=== PATIENT | male | born 1945 | race Caucasian/White ===

== ENCOUNTER 2017-02-27 12:11 | Inpatient (IN) | payer MEDICARE ==
[~2017-02-27] VITALS: Ht 165.1 cm; Wt 47.5 kg
[~2017-02-27 12:11] MED LIST: ASPI81TA3 PO; CEPH500C PO; HYDR-4003 PO; HYDR12.5 PO; LIDOCAINE PATCH; OMEP20CA11 PO; POLY17PO6 PO; PRAV20TA2 PO; SULF1TAB7 PO; TIOT18CA3 IH
[2017-02-27 12:31] VITALS: BP 136/86; PULSE 58; RESP 14; O2SAT 98
--- NOTE | 2017-02-27 14:47 | ED.REPORT ---
HPI-Abd Pain M 40 and Over Date of Service Feb 27, 2017 ED Provider: Dr. Carpenter The pt is a 71 y/o male with a hx of COPD, HTN, hyperlipidemia, and recent hospitalization for pneumonia who presents to the ED complaining of "7/10" abdominal pain for the last 5 days. He reports relief after a BM. Associated sx include cough, chills, constipation for a few days, followed by mild diarrhea with hematochezia more recently. He denies recent travel, headache, nausea, vomiting, vision change, lightheadedness, and rash. The pt had a colonoscopy 3 years ago, which resulted normal. Nursing Notes Stated Complaint: ABD PAIN Chief Complaint: Male Abdominal Pain Nursing Notes Reviewed: Yes Allergies: Coded Allergies: No Known Allergies (Verified Allergy, Unknown, 02/27/17) Scheduled Aspirin Chew (Aspirin Chew) 81 Mg Chew 81 MG PO DAILY Polyethylene Glycol 3350 (Miralax) 17 Gm Powd.pack 17 GM PO DAILY Pravastatin (Pravastatin) 20 Mg Tablet 20 MG PO DAILY Tiotropium [place] (Spiriva) 18 Mcg Cap.w.dev 18 MCG IH DAILY Scheduled PRN Hydrocodone-Acetaminophen 5-325 mg (Hydrocodone-Acetaminophen 5-325 mg) 1 Each Tablet 1-2 EACH PO Q6 PRN PRN For Pain General Time Seen by MD: 14:47 Chief Complaint Abdominal pain Hx Obtained From: Patient Arrived By: Walk-in Sudden in Onset?: Yes Onset Occurred: 5 days ago Symptom Duration: Since onset Location: : Diffuse Quality: Painful Radiation: : Does not radiate Severity: Current: Moderate Severity: Maximum: Moderate Recent Healthcare: No recent doctor visit Past Medical History Past Medical History Retinal artery Hx of kidney stones Reports: Asthma, COPD, Hyperlipidemia, Hypertension Past Surgical History Cardiac cath hernia repair Back surgery Smoking History Former Smoker 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 Skin: Denies Rash Neurologic: Denies: Headache, Lightheaded, Vision change Physical Exam Initial Vital Signs Vital Signs (First) Date Time Temp Pulse Resp B/P Pulse Ox O2 Delivery O2 Flow Rate FiO2 02/27/17 12:31 36.8 58 14 136/86 98 Room Air Initial VS: Reviewed Head / Eyes: Atraumatic, Normocephalic Neck: Supple, Non-tender, Full range of motion Extremities: Vascular intact, Neuro intact, No swelling, No tenderness Skin: Warm, Dry, No cyanosis Neurologic: Alert, Oriented, Nonfocal General/Constitutional: Awake, Alert, Cooperative Distress / Hydration: Positive: Distress mild Respiratory / Chest: Atraumatic, Breath sounds NL, Breath sounds = bilat, No respiratory distress, No rales, No rhonchi, No wheezing Cardiovascular: Heart rate NL, Regular rhythm, Heart sounds NL, No gallop, No murmurs, No rubs Abdomen: Atraumatic, Soft, Non-tender, No guarding, No rebound Back: Atraumatic, Full range of motion, Painless range of motion Rectum / Perineum: Atraumatic Guaiac negative. (Exam performed by medical student) Interpretation & Diagnostics Lab Results Interpretation Result Diagram: 02/27/17 1432 02/27/17 1432 Test 02/27/17 14:32 02/27/17 17:21 White Blood Count 11.2th/mm3 (3.8-10.1) Red Blood Count 3.86mil/mm3 (4.40-5.80) Hemoglobin 13.2g/dL (13.8-17.2) Hematocrit 40.1% (41.0-50.0) Mean Corpuscular Volume 103.9fL (81-100) Mean Corpuscular Hemoglobin 34.2pg (27.0-35.0) Mean Corpuscular Hemoglobin Concent 32.9% (32.0-37.0) Red Cell Distribution Width 12.8% (12.3-15.4) Platelet Count 230bil/L (150-400) Neutrophils (%) (Auto) 79.3% (40-74) Lymphocytes (%) (Auto) 11.8% (14-46) Monocytes (%) (Auto) 7.9% (4-12) Eosinophils (%) (Auto) 0.3% (0-5) Basophils (%) (Auto) 0.4% (0-3) Sodium Level 139mEq/L (134-144) Potassium Level 4.5mEq/L (3.5-5.2) Chloride Level 102mEq/L (97-108) Carbon Dioxide Level 21mmol/L (18-29) Blood Urea Nitrogen 26mg/dL (8-27) Creatinine 1.33mg/dL (0.76-1.27) Estimat Glomerular Filtration Rate 56mL/min (>59) Glucose Level 95mg/dL (60-99) Calcium Level 9.3mg/dL (8.5-10.1) Magnesium Level 2.2mg/dL (1.6-2.6) Total Bilirubin 0.5mg/dL (0.0-1.2) Aspartate Amino Transf (AST/SGOT) 15U/L (0-50) Alanine Aminotransferase (ALT/SGPT) 14U/L (0-44) Alkaline Phosphatase 67U/L (25-160) Total Protein 7.2g/dL (6.4-8.4) Albumin 3.9g/dL (3.4-5.0) Lipase 11U/L (13-60) Hold Little Top Tube Received (Received) Hold Urine Received (Received) CT Abd / Pelvis Interpretation IMPRESSION: 1. No acute intra-abdominal findings. The appendix was not visualized; however there are no ancillary findings to suggest acute appendicitis. 2. Diverticulosis. No acute diverticulitis. Diverticular bleeding in the setting of hematochezia cannot be excluded. Colonoscopy is recommended. 3. Intrahepatic biliary ductal dilatation unchanged from prior studies. Dictated by: Abbey Villela M.D. on 02/27/2017 at 17:59 Approved by: Abbey Villela M.D. on 02/27/2017 at 18:14 Study type: Abdominal CT IV contrast Interpretation / Wet Read by: Interpret - Radiologist Re-Eval/Medical Decision Med Decision/Clinical Course Concern for diverticular GI bleeding, H&H is stable at this time. GI is consulted, agrees with plan for admission, trending hemoglobin and hematocrit and will plan for colonoscopy in the morning. Source of Hx: Old records Time of Eval: 18:22 Re-Evaluation/Progress Note: Rechecked pt. Discussed imaging results and plan to admit. Pt understands and agrees with the plan. All questions addressed Time of Eval: 18:46 Re-Evaluation/Progress Note: Rechecked pt. Discussed the plan to do a colonoscopy tomorrow. The pt understands and agrees with the plan. All questions answered. Consultation #1: Referral / Consult Name: Eleazar Fortune MD Call Returned at: 18:41 Legal Billing Coordinator: Will see patient, Agrees with eval, Agrees with plan Note: Recommends following Hgb, Hct, starting bowel prep, 2L tonight and 2L in the morning from 6 AM to 8 AM. He will do a colonoscopy tomorrow morning so recommends NPO after 8am. Available for consult overnight if the patient becomes unstable Consultation #2: Referral / Consult Name: Sindhu Kennedy MD Consulted With: Hospitalist Call Returned at: 18:44 Legal Billing Coordinator: Will see patient, Agrees with eval, Agrees with plan, Accepts admit Note: Dr. Kennedy is okay with transition orders. Counseled Regarding: Diagnosis, Lab results, Need for admission Discharge & Departure Primary Impression: Diverticulosis Diverticulosis site: unspecified location Diverticulosis bleeding: diverticulosis with bleeding Qualified Code: K57.91 - Diverticulosis of intestine, part unspecified, without perforation or abscess with bleeding Disposition: ADMITTED TO HOSPITAL Vital Signs - All Vital Signs Date Time Temp Pulse Resp B/P Pulse Ox O2 Delivery O2 Flow Rate FiO2 02/27/17 16:31 36.9 50 14 163/76 97 Room Air 02/27/17 12:31 36.8 58 14 136/86 98 Room Air Referrals: César Monet MD (PCP) Scribe Attestation Portions of this note were transcribed by Guanakito Castillo. I,, personally performed the history,physical exam and medical decision-making;I reviewed and confirmed the accuracy of the information in the transcribed note. Signed by Sharon Lopez. 02/27/17 copies to: César Monet MD, Timothy S DO Feb 27, 2017 14:47 Guanakito Castillo Feb 27, 2017 16:08
[2017-02-27 14:50] LABS: BASOPHILS % (AUTO) 0.4 % (0-3); EOSINOPHILS % (AUTO) 0.3 % (0-5); MONOCYTES % (AUTO) 7.9 % (4-12); Mean Corpuscular Hemoglobin 34.2 pg (27.0-35.0); Mean Corpuscular Volume 103.9 fL (81-100); NEUTROPHILS % (AUTO) 79.3 % (40-74); Platelet Count 230 bil/L (150-400)
[2017-02-27 15:13] LABS: Magnesium 2.2 mg/dL (1.6-2.6)
[2017-02-27] MEDS ORDERED: Iohexol 300 mg/mL 30 mL Inj PO ONE (15:40)
[2017-02-27 16:31] VITALS: BP 163/76; PULSE 50; RESP 14; O2SAT 97
--- NOTE | 2017-02-27 18:16 | DRSVH ---
PROCEDURE: CT ABDOMEN AND PELVIS WITH CONTRAST ([id number]) INDICATIONS: abd pain, hematochezia, cramping TECHNIQUE: After the administration of oral and intravenous contrast, 5 mm thick sections acquired from the diap hragms to the symphysis. 5 mm thick coronal and sagittal reformats were performed. For radiation do se reduction, the following was used: automated exposure control, adjustment of mA and/or kV accordi ng to patient size. COMPARISON: [facility], CT, CT CHEST WO CON, 04/18/2016, 10:19. [facility], CT, CHEST/ABD/PELVIS/ WO CON (PN), 12/03/2014, 13:07. FINDINGS: Image quality: Excellent. ABDOMEN: Lung bases: Lung bases are clear. Heart size is normal. Solid organs: Liver and spleen are normal in size and enhancement. Focal fat is present at the falci form ligament. Gallbladder is unremarkable. There is mild to moderate intrahepatic biliary ductal dil atation unchanged from the CT dated 04/18/16. Pancreas is atrophic. There are bilateral adrenal gland nodules similar in size the study dated 12/03/14. The right kidney is atrophic. There is cortical thi nning of the left kidney as well.. Peritoneum and bowel: Stomach, small bowel, and colon loops are normal in caliber and wall thickness . The appendix is not visualized; however there is no discrete right lower quadrant fluid or fat stra nding to suggest acute appendicitis. There are scattered sigmoid diverticula. No evidence for diverti culitis. No free fluid or air. Nodes and vessels: No retroperitoneal or mesenteric adenopathy. Aorta and inferior vena cava are no rmal in caliber. There are scattered atheromatous calcifications throughout the aorta and iliac deysi javier bilaterally. Miscellaneous: No ventral hernias. PELVIS: Genitourinary: Bladder wall thickness is normal. Miscellaneous: No inguinal hernias or adenopathy. Bones: No suspicious bony lesions. Severe degenerative changes present throughout the thoracolumbar spine. No vertebral body compression fractures. IMPRESSION: 1. No acute intra-abdominal findings. The appendix was not visualized; however there are no ancillary findings to suggest acute appendicitis. 2. Diverticulosis. No acute diverticulitis. Diverticular bleeding in the setting of hematochezia kimberly ot be excluded. Colonoscopy is recommended. 3. Intrahepatic biliary ductal dilatation unchanged from prior studies. Dictated by: Abbey Villela M.D. on 02/27/2017 at 17:59 Approved by: Abbey Villela M.D. on 02/27/2017 at 18:14
[2017-02-27] MEDS: 0.9% Sodium Chloride 1,000 ML IV SCH (19:15)
[2017-02-27 19:22] VITALS: BP 159/73; PULSE 44; RESP 16; O2SAT 95
[2017-02-27] MEDS ORDERED: Ondansetron 2 mg/mL 2 mL Inj IVPUSH PRN (19:30)
[2017-02-27] MEDS ORDERED: Alum-Mag Hydrox-Simeth 30 mL Suspension PO PRN (19:30)
[2017-02-27] MEDS ORDERED: Polyethylene Glycol (PEG) 17 Gm Powder PO PRN ×2 (19:30→21:05)
[2017-02-27 20:11] VITALS: BP 159/73; PULSE 44; RESP 16; O2SAT 95
[2017-02-27 20:13] VITALS: BP 182/90; PULSE 57; RESP 18; O2SAT 96
--- NOTE | 2017-02-27 20:14 | PCM.HPMED ---
Subjective Date of Service Feb 27, 2017 Primary Provider: Admitting Physician: Brien Pinedo MD Primary Care Physician: César Monet MD Attending Physician: Brien Pinedo MD Admit Status: From the Emergency Department, Remote Telemetry Chief Complaint: abdominal discomfort with chills History of Present Illness: Mr. Christianson is a pleasant 71 year old gentleman with a history of iron deficiency anemia, COPD, and HTN, that presented to [facility] with a 5 day history of alternating diarrhea and constipation with presence of blood, associated intermittent abdominal discomfort and development of chills. Stat CT in the ED did not reveal any acute changes or etiologies of pain, but did reveal diverticulosis. The ED kindly contacted GI, Dr. Fortune, whom kindly agreed to pursue with colonoscopy. Patient was admitted for evaluation and treatment of lower GI bleed. - Hospital day one Mr. Christianson states that his symptoms of alternating diarrhea and constipation have exacerbated over the recent 5 days, and he noted bright red blood within his stool. He also notes associated chills. Denies any weakness, fatigue, SOB, CP, palpitations. Admits to history of anemia. During the initrial examination, he requests to remain on his right side in bed, as he states ongoing chills, and is requesting for some rest prior to his initiation of bowel prep. Patient agrees to admission, and completion of GoLytely solution in preparation for colonoscopy. At time of admission, denies any ongoing abdominal discomfort, fever, dysuria, hematuria, extremity pain, vision changes, headache. States he is comfortable without complaint. In the ED: T36.8, P58, R14, BP 136/86, 98% RA; initial H/H at 1432 Hb 13.2, Hct 40.1; repeat HH at 1906 Hb 13.1, Hct 40.2; WBC 11.2 with 79.3 neut; electrolytes within range, Cr 1.33, lipase 11, LFTs within range; CT A/P with contrast revealed no acute intra-abdominal findings, but did reveal diverticulosis. ED consulted with GI, whom agreed to pursue with bowel prep and colonoscopy. Pt transferred to medical floor in stable condition. Review of Systems: Complete review of systems obtained, pertinent positives and negatives as noted in history of present illness Allergies Coded Allergies: No Known Allergies (Verified Allergy, Unknown, 02/27/17) Home Medications Aspirin Chew (Aspirin Chew) 81 Mg Chew 81 MG PO DAILY Polyethylene Glycol 3350 (Miralax) 17 Gm Powd.pack 17 GM PO DAILY Pravastatin (Pravastatin) 20 Mg Tablet 20 MG PO DAILY Tiotropium [place] (Spiriva) 18 Mcg Cap.w.dev 18 MCG IH DAILY Scheduled PRN Hydrocodone-Acetaminophen 5-325 mg (Hydrocodone-Acetaminophen 5-325 mg) 1 Each Tablet 1-2 EACH PO Q6 PRN PRN For Pain PMH Nephrolithiasis Macrocytic anemia Renal insufficiency Gastritis Hypertension Hyperlipidemia 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 Left inguinal hernia repair in 1972. 2. Previous right ureteroscopic laser lithotripsy March 21, 2011. 3. Distal ureteral stones. 4. Cardiac catheterization 5. Unspecified back surgery Other reports: Cystoscopy, colonoscopy, EGD, thyroid needle aspiration Family History Has 3 sons, whom are reported as healthy Two brothers whom are presumed alive and well Sr. 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 Exam Vital Signs Vital Sign - Last Date Time Temp Pulse Resp B/P Pulse Ox O2 Delivery O2 Flow Rate FiO2 02/27/17 19:22 37.4 44 16 159/73 95 Room Air Exam General: Alert and oriented 3; pleasant thin gentleman resting on right side in bed in no acute distress HEENT: Atraumatic, normocephalic, sclera anicteric, membranes moist Neck: Full range of motion without pain Cardiac: Regular rate and rhythm at time of examination without any appreciable murmurs Respiratory: Equal and adequate airflow all holden without any wheeze or rhonchi ; no use of accessory muscles Chest: Atraumatic without any reproducible pain with palpation Abdomen: Soft, mild discomfort with palpation, nondistended Extremities: No edema appreciated Skin: Warm and dry MSK: 5/5 strength 4/4 extremities at major joints of the shoulder, hip; able to move in bed without assistance Neuro: Cranial nerves II-XII grossly intact, patient reports decreased vision with right eye ; speech without slur, facial expressions equal and symmetric Psych: Appropriate mood, affect, and responses to questions; good insight and judgment Lab and Diagnostics Result Diagram: 02/27/17 1906 02/27/17 1432 Assessment & Plan Mr. Christianson is a pleasant 71 year old gentleman with a history of iron deficiency anemia, COPD, and HTN, that presented to [facility] with a 5 day history of alternating diarrhea and constipation with presence of blood, associated intermittent abdominal discomfort and development of chills. Stat CT in the ED did not reveal any acute changes or etiologies of pain, but did reveal diverticulosis. The ED kindly contacted GI, Dr. Fortune, whom kindly agreed to pursue with colonoscopy. Patient was admitted for evaluation and treatment of lower GI bleed. - Hospital day one Suspected LGIB, acute, present on admission, under evaluation - On admit: Hb 13.2, 13.1; stable - Pt c/o hematochezia with alternating diarrhea/constipation episodes; DDx includes malignancy, diverticular bleed, hemorrhoids, opioid induced constipation - Hx: Colonoscopy/EGD 2012 completed secondary to weight loss which revealed gastritis, esophagitis, mild diverticulosis; repeat completed 2014 - [facility] GI 07/08/16: Visit for unexplained weight loss; no etiology identified - GI consulted: Dr. Fortune, consult order placed - Golytely: 2L evening of admission, 2L 02/28/2017 [id number]; NPO after - Plan for colonoscopy in am per GI scheduling; appreciate time and recs Leukocytosis, chronicity unknown, present on admission, under evaluation - On admit: WBC 11.2; pt c/o chills x5 days - DDx: stress reaction, underlying infxn - Obtain: BCx, UA; continue to monitor vitals and labs Diarrhea/constipation, acute, present on admission, under evaluation - Pt states these episodes were accompanied with presence of BRBPR - H/H stable on admit - DDx of irregular bowel: electrolyte aberrancy, thyroid dysfunction, poor dietary choices, malabsorption, lack of healthy bowel regimen such as daily fiber/softener use - Monitor History of iron deficiency anemia, chronic, presumed stable - Will continue to monitor; investigation for other occult blood losses as noted above - Previously seen by Dr. Enrique, 2015 COPD, presumed stable - Duonebs QIDWA + accunebs q2h prn History of HTN, chronic, presumed stable - Managed without medication interventions Protein-calorie malnutrition, chronicity unknown, present on admission, presumed stable - On admit: BMI 16.7 - Weight approx 117lbs in 2015 - Dietary consultation - Pending results of colonoscopy, possible investigation into other possible etiologies: Poor dietary intake, other site of malignancy, malabsorption PRN fever, bowel, nausea, pain DVT: SCDs Diet: Clears only with Golytely GI: H2B IVF: NS 100 Code: FULL CODE Patient is admitted under observation status with expected length of stay less than 2 midnights due to severity of presenting symptoms, risk of adverse event, and complexity of treatment plan. Pain Evaluation: Adequate Pain Control GI Prophylaxis: Proton Pump Inhibitor VTE Prophylaxis: SCDs Resuscitation Status: CPR: Attempt Resuscitation Attending Statement The patient was seen and examined together with Dr. Arguello on 02/27 and I agree with the history, exam and plan as outlined in the note above Maegan Arguello DO Feb 27, 2017 20:14 Brien Pinedo MD Feb 27, 2017 23:56
[2017-02-27] MEDS ORDERED: PEG/Electrolytes 4,000 mL Solution PO ONE (20:30)
[2017-02-27 21:13] LABS: APPEARANCE,URINE CLEAR (CLEAR,HAZY); COLOR,URINE YELLOW (YELLOW); OCCULT BLOOD,URINE SMALL (NEGATIVE); PH,URINE 5.5 (5.0-8.0); UROBILINOGEN,URINE NORMAL (NORMAL)
[2017-02-27] MEDS ORDERED: Albuterol 2.5 mg/3 mL Inhalation Solution NEB PRN (21:20)
[2017-02-27 22:06] VITALS: PULSE 51
[2017-02-28] VITALS (13 sets, daily range): BP systolic 135–195; BP diastolic 65–92; PULSE 47–88; RESP 16–20; O2SAT 96–98
[2017-02-28] MEDS ORDERED: Heparin 5,000 Unit/mL Inj SUBQ SCH (00:30)
--- NOTE | 2017-02-28 00:35 | NUR ---
Admission Pt arrived to [facility] rm 1006 from the ED at 1999. Pt able to transfer from [facility] to bed with SBA. Pt has 0 c/o pain at this time, states when it happens it is abdominal cramping and it goes away quickly. Pt is here due to GI bleed. Colyte bowel prep started for AM colonoscopy. Pt is clear liquids until 8am then will be NPO. CPR. IV asymptomatic with IV fluids running. Oriented to room, call light and BR. Pt is up independently and uses call light appropriately. BSC at bedside due to bowel prep. Call light in reach, bed in low position. Care continues
[2017-02-28] MEDS: 0.9% Sodium Chloride 1,000 ML IV SCH ×2 (04:55→13:59)
[2017-02-28 05:37] LABS: BASOPHILS % (AUTO) 0.3 % (0-3); EOSINOPHILS % (AUTO) 1.1 % (0-5); MONOCYTES % (AUTO) 8.4 % (4-12); Mean Corpuscular Hemoglobin 34.3 pg (27.0-35.0); Mean Corpuscular Volume 103.2 fL (81-100); NEUTROPHILS % (AUTO) 76.2 % (40-74); Platelet Count 222 bil/L (150-400)
[2017-02-28 06:04] LABS: Phosphorus 2.4 mg/dL (2.5-4.9)
[2017-02-28] MEDS: Albuterol-Ipratropium 3 mL Inhalation Solution NEB SCH ×4 (07:42→20:21)
[2017-02-28] MEDS: Famotidine Inj 20 MG in IV Premix 1 EACH IV SCH ×2 (09:03→20:56)
--- NOTE | 2017-02-28 10:50 | PCM.CHPMED ---
Subjective Date of Service: Feb 28, 2017 Primary Physician: Admitting Physician: Brien Pinedo MD Primary Care Physician: César Monet MD Attending Physician: Areli Cabezas DO Admit Status: From the Emergency Department Chief Complaint: Chief Complaint: Abdominal discomfort with chills History of Present Illness: GASTROENTEROLOGY CONSULTATION Attending Physician: Eleazar Fortune MD Resident Physician: Sandy Rosas DO Shy Hewitt is a 71-year-old gentleman with a history of macrocytic anemia, gastritis, COPD, nephrolithiasis, and HTN who presented to ED with the complaint of abdominal cramping and bright red blood in stool for the past 5 days. He states that he alternates between diarrhea and constipation and first noticed blood in his stool last Monday (02/22). Since that time he reports intermittent bloody bowel movements associated with diaphoresis, chills, dizziness, generalized weakness and fatigue. He denies similar symptoms in the past. He states that his last colonoscopy was about 5 years ago and he reports this as normal. He is a current everyday smoker and reports a pack per day. He denies alcohol, caffeine, and NSAID use. He denies shortness of breath, chest pain or palpitations, nausea, vomiting or reflux symptoms. He reports a decreased appetite and nearly 50lb weight loss in the past two years, which he attributes to a decline in his health at that time. He states that he traveled to [place] for work and became quite ill. He attributes this decline to a change in his immune system, stating that he had a rare pneumonia as well as shingles. Additionally, he denies dysuria, hematuria, extremity pain, vision changes, and headache. At presentation he was afebrile and hemodynamically stable with labs significant for mild macrocytic anemia and mild leukocytosis. CT abdomen was no acute intra-abdominal findings, but did reveal diverticulosis. Bowel prep was initiated at time of admission with plan for colonoscopy today. Review of Systems: A comprehensive review of systems was conducted with the patient and found to be negative except as above in the History of Present Illness. 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 Surgical History Left inguinal hernia repair in 1972. Previous right ureteroscopic laser lithotripsy March 21, 2011. Distal ureteral stones. Cardiac catheterization Unspecified back surgery Other: Cystoscopy, Colonoscopy, EGD, thyroid needle aspiration . 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 Alcohol Use: Yes (previous)Hx Substance Use : NoHx Tobacco Use: Yes (1 pack/day) Smoking Status: Current Every Day Smoker (approximately 1 pack per day; decreased from 2 packs per day 30 years) Living Arrangement: with Family Exam Vital Signs Vital Sign - Last Date Time Temp Pulse Resp B/P Pulse Ox O2 Delivery O2 Flow Rate FiO2 02/28/17 07:40 56 18 98 Room Air 02/28/17 07:32 36.6 194/92 Intake and Output 02/27/17 02/27/17 02/28/17 Cumulative From/Thru 15:00 23:00 07:00 02/27/17 12:31 - 02/28/17 06:14 Intake Total 75 ml 2257 ml 2332 ml Output Total 1225 ml 1225 ml Balance 75 ml 1032 ml 1107 ml Intake Oral 1200 ml 1200 ml IV Total 75 ml 1057 ml 1132 ml Output Urine Total 475 ml 475 ml Stool Total 750 ml 750 ml # Bowel Movements 8 8 General: Age appropriate, thin and somewhat pale gentleman in no acute distress. HEENT: Atraumatic, normocephalic, PERRLA, sclera anicteric, mucous membranes moist/pink. Lungs: Clear to auscultation bilaterally with no crackles, wheezes, or rhonchi. Cardiovascular: Regular rate/rhythm. No murmurs Abdomen: Soft, non-distended, mild/diffuse tenderness to palpation, no rebound/ guarding. Hypoactive bowel tones. No masses Extremities: No edema, muscle wasting upper/lower ext bilaterally. Skin: Warm and dry. No obvious rashes or ulcerations Neurological: AOx3, No focal neurologic deficit. Normal speech Psychiatric: Normal mood and affect. Communicating appropriately Lab and Diagnostics Labs Laboratory Tests Test 02/27/17 14:32 02/27/17 17:21 02/27/17 19:06 02/27/17 21:05 White Blood Count 11.2th/mm3 (3.8-10.1) Red Blood Count 3.86mil/mm3 (4.40-5.80) Hemoglobin 13.2g/dL (13.8-17.2) 13.1g/dL (13.8-17.2) Hematocrit 40.1% (41.0-50.0) 40.2% (41.0-50.0) Mean Corpuscular Volume 103.9fL (81-100) Mean Corpuscular Hemoglobin 34.2pg (27.0-35.0) Mean Corpuscular Hemoglobin Concent 32.9% (32.0-37.0) Red Cell Distribution Width 12.8% (12.3-15.4) Platelet Count 230bil/L (150-400) Neutrophils (%) (Auto) 79.3% (40-74) Lymphocytes (%) (Auto) 11.8% (14-46) Monocytes (%) (Auto) 7.9% (4-12) Eosinophils (%) (Auto) 0.3% (0-5) Basophils (%) (Auto) 0.4% (0-3) Sodium Level 139mEq/L (134-144) Potassium Level 4.5mEq/L (3.5-5.2) Chloride Level 102mEq/L (97-108) Carbon Dioxide Level 21mmol/L (18-29) Blood Urea Nitrogen 26mg/dL (8-27) Creatinine 1.33mg/dL (0.76-1.27) Estimat Glomerular Filtration Rate 56mL/min (>59) Glucose Level 95mg/dL (60-99) Calcium Level 9.3mg/dL (8.5-10.1) Magnesium Level 2.2mg/dL (1.6-2.6) Total Bilirubin 0.5mg/dL (0.0-1.2) Aspartate Amino Transf (AST/SGOT) 15U/L (0-50) Alanine Aminotransferase (ALT/SGPT) 14U/L (0-44) Alkaline Phosphatase 67U/L (25-160) Total Protein 7.2g/dL (6.4-8.4) Albumin 3.9g/dL (3.4-5.0) Lipase 11U/L (13-60) Hold Little Top Tube Received (Received) Hold Urine Received (Received) Urine Color Yellow (YELLOW) Urine Appearance Clear (CLEAR,HAZY) Urine pH 5.5 (5.0-8.0) Urine Specific [place] 1.020 (1.003-1.035) Urine Protein 30mg/dL (NEG,TRACE) Urine Glucose (UA) Negativemg/dL (NEGATIVE) Urine Ketones Negativemg/dL (NEGATIVE) Urine Occult Blood Small (NEGATIVE) Urine Nitrite Negative (NEGATIVE) Urine Bilirubin Negative (NEGATIVE) Urine Urobilinogen Normalmg/dL (NORMAL) Urine Leukocyte Esterase Negative (NEGATIVE) Urine RBC 0-2/hpf (0-2) Urine WBC 0-5/hpf (0-5) Urine Epithelial Cells Few/hpf (NONE-MOD) Urine Crystals None seen (NONE SEEN) Urine Bacteria Few/hpf (NONE-FEW) Urine Hyaline Casts None/lpf (NONE) Urine Granular Casts None seen (NONE SEEN) Urine Waxy Casts None seen (NONE SEEN) Urine Red Blood Cell Casts None seen (NONE SEEN) Urine White Blood Cell Casts None seen (NONE SEEN) Urine Mucus None seen (None Seen) Urine Trichomonas None seen (NONE SEEN) Urine Yeast None (NONE SEEN) Urinalysis Comment None Urine Culture Reflexed Not indicated Test 02/28/17 05:05 White Blood Count 11.6th/mm3 (3.8-10.1) Red Blood Count 3.47mil/mm3 (4.40-5.80) Hemoglobin 11.9g/dL (13.8-17.2) Hematocrit 35.8% (41.0-50.0) Mean Corpuscular Volume 103.2fL (81-100) Mean Corpuscular Hemoglobin 34.3pg (27.0-35.0) Mean Corpuscular Hemoglobin Concent 33.2% (32.0-37.0) Red Cell Distribution Width 12.8% (12.3-15.4) Platelet Count 222bil/L (150-400) Neutrophils (%) (Auto) 76.2% (40-74) Lymphocytes (%) (Auto) 13.8% (14-46) Monocytes (%) (Auto) 8.4% (4-12) Eosinophils (%) (Auto) 1.1% (0-5) Basophils (%) (Auto) 0.3% (0-3) Sodium Level 142mEq/L (134-144) Potassium Level 4.2mEq/L (3.5-5.2) Chloride Level 104mEq/L (97-108) Carbon Dioxide Level 21mmol/L (18-29) Blood Urea Nitrogen 22mg/dL (8-27) Creatinine 1.24mg/dL (0.76-1.27) Estimat Glomerular Filtration Rate 61mL/min (>59) Glucose Level 85mg/dL (60-99) Calcium Level 8.7mg/dL (8.5-10.1) Phosphorus Level 2.4mg/dL (2.5-4.9) Magnesium Level 2.0mg/dL (1.6-2.6) Thyroid Stimulating Hormone (TSH) 0.855uIU/mL (0.450-4.500) Free Thyroxine 1.80ng/dL (0.82-1.77) Microbiology 02/27/17 Blood Culture- pending . Result Diagram: 02/28/17 0505 02/28/17 0505 X-Rays, CTs and MRIs 02/27/17 - CT ABDOMEN AND PELVIS WITH CONTRAST IMPRESSION: 1. No acute intra-abdominal findings. The appendix was not visualized; however there are no ancillary findings to suggest acute appendicitis. 2. Diverticulosis. No acute diverticulitis. Diverticular bleeding in the setting of hematochezia cannot be excluded. Colonoscopy is recommended. 3. Intrahepatic biliary ductal dilatation unchanged from prior studies. Approved by: Abbey Villela M.D. on 02/27/2017 at 18:14 . Assessment & Plan Assessment 71-year-old gentleman with a history of macrocytic anemia, gastritis, COPD, nephrolithiasis, and HTN who presented to ED with the complaint of abdominal cramping, alternating diarrhea/constipation, and bright red blood in stool for the past 5 days. Probable lower GI bleed in patient with alternating diarrhea and constipation with bright red blood blood per rectum. -Differential includes: malignancy, diverticular bleed, hemorrhoids, opioid induced constipation. -Most recent EGD/Colonoscopy in 2012 completed secondary to weight loss which revealed gastritis, esophagitis, mild diverticulosis; repeat completed 2014. -[facility] 07/08/16: Visit for unexplained weight loss; no etiology identified -Hemodynamically stable. H/H trended down slightly from 13.2/40.1 to 11.9/35.8 -Bowel prep started on admission with plan for colonoscopy today -Additional recommendations pending colonoscopy findings Macrocytic anemia, uncertain etiology. -Possibly due to malnutrition and/or malabsorption. Past medical hx also noted iron deficiency anemia. -MCV 103.2, H/H 11.9/35.8 -Check B12, folate -MCV slightly >100, check iron studies Mild leukocytosis -Secondary to stress reaction or possibly occult infection. Pt complaining of chills, clinically no signs of systemic infection. -Blood cultures, pending -Monitor CBC Additional problems managed by primary medicine team: -Patient with history of iron deficiency as well as macrocytic anemia -COPD -Hypertension -Protein-calorie malnutrition Problems: Pain Evaluation: Adequate Pain Control GI Prophylaxis: Proton Pump Inhibitor VTE Prophylaxis: SCDs VTE Mechanical Devices: Intermittant Pneumatic CD Resuscitation Status: CPR: Attempt Resuscitation Attending Statement Patient seen and examined. Agree with initial assessment and plan as described by Dr Rosas. However, subsequently, stool PCR returned positive for C diff. I canceled the colonoscopy. Patient is now in isolation and being started on appropriate oral therapy. He has not had any further symptoms of red blood per rectum. Stool output with prep has essentially been brown. I recommended he experience completion of C diff therapy and we update his colonoscopy as an outpatient in the next few wks considering the small amts of red blood and clots he's seen per rectum starting last week. Patient's diet can be advanced at this time. Sandy Rosas DO Feb 28, 2017 09:49 Eleazar Fortune MD Feb 28, 2017 18:11
--- NOTE | 2017-02-28 11:09 | NUR ---
Case Management: JOSE given and explained to pt. Jaycee SPICER RN
--- NOTE | 2017-02-28 13:28 | NUR ---
NUTRITION ASSESSMENT Assess: 71 YO M admitted for lower GI bleed. Plan for colonoscopy today. Consult received for protein calorie malnutrition. Pt has been NPO X 1 day. PMHX: Nephrolithiasis, macrocytic anemia, renal insufficiency, gastritis, HTN, HLD, retinal artery occlusion, COPD. DIET: NPO. LABS: Reviewed. Phos 2.4, Alb WNL. MEDICATIONS: Reviewed. GI: 8 BM 02/28 SKIN: No issues noted. ANTHROPOMETRICS: Wt: 45.8 kg, BMI 16.8 kg/m2 = underweight, Admit wt: 45.6 kg. IBW: 61.8 kg (74%). Per EMR, it appears there has been progressive weight loss as far back as 2011 (64.9 kg), unclear how much pt has lost in the recent past as there are limited weights available. ESTIMATED NEEDS: WT GAIN Calories: 0995-8348 kcal/day (30-35 kcal/kg BW) Protein: 74-93 g/day (1.2-1.5 g/kg IBW) NUTRITION DIAGNOSIS: 1) Inadequate oral intake related to unknown etiology as evidenced by BMI 16.8 kg/m2, INTERVENTION: 1) Will await timely advancement of diet s/p procedure. Recommend general diet and avoiding unnecessary diet restrictions on pt who requires weight gain. Will add supplements to encourage adequate nutrition once diet advanced. 2) Will offer high kcal/protein education once pt s/p colonoscopy. Will follow up tomorrow to provide education and gain pt's weight loss history. MONITOR/EVALUATE: NPO status, labs, diet advance, education, wt, GI/nutrition status. Follow per moderate nutrition risk guidelines.
[2017-02-28] MEDS ORDERED: 0.9% Sodium Chloride 0 ML ONE (13:52)
--- NOTE | 2017-02-28 14:12 | NUR ---
C-Diff Per lab, pt (+)C-diff. Red Team paged, awaiting orders, care ongoing.
--- NOTE | 2017-02-28 15:42 | NUR ---
Social Work Note: Initial Assessment Data& Assessment: EMR reviewed. BURLESQUE DANCER met with pt at bedside to discuss discharge planning, SW role explained. Discharge Planning checklist packet provided. Shy Hewitt is a 71 year old male admitted under observation for lower GI bleed on 02/27/2017. Pt has Medicare and A[employer] Supplemental insurance coverage. Pt lives in [place] with his spouse and is independent with all ADL's at baseline with no DME needs. Pt does not have HH or SNF hx. Pt drives. Pt is not a . Pt has LTC insurance. Pt states he has DPOA/AD paperwork completed at home and his will bring in a copy in the next 1-2 days. Pt to transport pt home when medically ready. MD does not identify any concerns for pt capacity for self care at this time. Pt denies any needs at this time. BURLESQUE DANCER to continue to follow if any needs or MD orders arise. Plan: Anticipated discharge home via POV when medically ready. Pt denies any needs at this time. BURLESQUE DANCER to continue to follow if any needs or MD orders arise. WARNER Griffin Addendum: 02/28/17 at 1548 by GARCIA MORRIS Amended: Links added.
--- NOTE | 2017-02-28 17:03 | NUR ---
Conversation with Daughter Per daughter, pt and family are Scientologist and pt daughter states "I am not ready for this, I am not ready for her to go." Daughter had expressed she wishes the body to not be moved or touched after pt passing due to christianity and cultural beliefs, she states "this gives the body time to relax and the spirit to leave." lead advisor made aware. Order for Uli put in as pt daughter requested to speak with Spiritual Counselor. Care ongoing. Addendum: 03/01/17 at 0713 by NURYS COELLO RN Charted wrong patient
[2017-02-28] MEDS: HYDROcodone-APAP 5-325 mg Tablet PO PRN ×2 (17:41→21:50)
--- NOTE | 2017-02-28 20:08 | PCM.PNMED ---
Subjective Date of Service Feb 28, 2017 Subjective Patient states that he has no abdominal pain , rectal bleeding started 2 days ago, he does not know of any hemorrhoid history. He states that he had a colonoscopy 3-4 years ago which was normal . He also talked about following up with Dr. Enrique for anemia in the past, no causes found he has not been on iron supplementation . Currently he is drinking GoLYTELY but is endorsing some nausea because of the preparation. Exam Vital Signs Vital Sign - Last Date Time Temp Pulse Resp B/P Pulse Ox O2 Delivery O2 Flow Rate FiO2 02/28/17 07:32 36.6 53 20 194/92 97 Room Air Intake and Output 02/27/17 02/27/17 02/28/17 Cumulative From/Thru 15:00 23:00 07:00 02/27/17 12:31 - 02/28/17 06:14 Intake Total 75 ml 2257 ml 2332 ml Output Total 1225 ml 1225 ml Balance 75 ml 1032 ml 1107 ml Intake Oral 1200 ml 1200 ml IV Total 75 ml 1057 ml 1132 ml Output Urine Total 475 ml 475 ml Stool Total 750 ml 750 ml # Bowel Movements 8 8 Exam General: Thin-appearing man HEENT: Remarkable for rhinophyma Heart: Patient appears to have regularly irregular heartbeat with possible blocks Lungs clear to auscultation no crackles or wheezes Abdomen: Flat nondistended, nontender, hyperactive bowel sounds Extremities: Negative for edema Psych: Negative for anxiety and agitation Neurological no focal deficits alert and oriented by 3, answering questions appropriately IVs and Medications Medications Reviewed: Medications were reviewed in detail Lab and Diagnostics Result Diagram: 02/28/17 0505 02/28/17 0505 Assessment & Plan Mr. Christianson is a pleasant 71 year old gentleman with a history of iron deficiency anemia, COPD, and HTN, that presented to [facility] with a 5 day history of alternating diarrhea and constipation with presence of blood, associated intermittent abdominal discomfort and development of chills. Stat CT in the ED did not reveal any acute changes or etiologies of pain, but did reveal diverticulosis. The ED kindly contacted GI, Dr. Fortune, whom kindly agreed to pursue with colonoscopy. Patient was admitted for evaluation and treatment of lower GI bleed. - Hospital day one C. difficile colitis, present on admission active acute -- --Stool PCR was sent this a.m. return positive for C. difficile, started him on PO vancomycin -- Suspected LGIB, acute, present on admission, under evaluation - On admit: Hb 13.2, 13.1; stable - Pt c/o hematochezia with alternating diarrhea/constipation episodes; DDx includes malignancy, diverticular bleed, hemorrhoids, opioid induced constipation - Hx: Colonoscopy/EGD 2012 completed secondary to weight loss which revealed gastritis, esophagitis, mild diverticulosis; repeat completed 2014 - [facility] 07/08/16: Visit for unexplained weight loss; no etiology identified - GI consulted: Dr. Fortune, consult order placed - Golytely: 2L evening of admission, 2L 02/28/2017 [id number]; NPO after --Stool PCR was sent this a.m. return positive for C. difficile, started him on PO vancomycin -- Notified the EGD lab, they cancelled his colonoscopy. -- Follow up with Dr. Fortune on 03/01 to see if he has any other plans for the patient -- Hemoglobin remained fairly stable during the day on 02/27 Leukocytosis, chronicity unknown, present on admission, under evaluation - On admit: WBC 11.2; pt c/o chills x5 days - DDx: stress reaction, underlying infxn - BCx are pending, UA negative; continue to monitor vitals and labs History of iron deficiency anemia, chronic, presumed stable - Will continue to monitor; investigation for other occult blood losses as noted above - Previously seen by Dr. Enrique, 2015 COPD, presumed stable - Duonebs QIDWA + accunebs q2h prn History of HTN, chronic, presumed stable - Managed without medication interventions --Patient was hypertensive this a.m. when necessary enalapril 1.25 mg every 6 hours with parameters as ordered as he was nauseated -- He tells me that he was on hydrochlorothiazide, which was discontinued as he was thought not to be needing it -- Consider lisinopril by mouth in the a.m. or alternatively amlodipine PO Protein-calorie malnutrition, chronicity unknown, present on admission, presumed stable - On admit: BMI 16.7 - Weight approx 117lbs in 2014 - Dietary consultation - Pending results of colonoscopy, possible investigation into other possible etiologies: Poor dietary intake, other site of malignancy, malabsorption PRN fever, bowel, nausea, pain DVT: SCDs Diet: Clears only with Golytely GI: H2B IVF: NS 60 Code: FULL CODE Patient is admitted under observation status with expected length of stay less than 2 midnights due to severity of presenting symptoms, risk of adverse event, and complexity of treatment plan. May consider d/c if diarrhea, H&H are stable. Discuss with GI. GI Prophylaxis: Proton Pump Inhibitor VTE Prophylaxis: SCDs VTE Mechanical Devices: Intermittant Pneumatic CD Resuscitation Status: CPR: Attempt Resuscitation Time spent 25 minutes Areli Cabezas DO Feb 28, 2017 07:52
[2017-02-28] MEDS: Vancomycin 125 mg Oral Capsule PO SCH (20:55)
[2017-03-01] VITALS (10 sets, daily range): BP systolic 153–180; BP diastolic 70–87; PULSE 49–63; RESP 16–20; O2SAT 96–99
[2017-03-01] MEDS: 0.9% Sodium Chloride 1,000 ML IV SCH (01:07)
[2017-03-01] MEDS: Vancomycin 125 mg Oral Capsule PO SCH ×4 (02:50→20:10)
[2017-03-01] MEDS: HYDROcodone-APAP 5-325 mg Tablet PO PRN ×4 (04:46→22:40)
--- NOTE | 2017-03-01 05:42 | NUR ---
Activity/Pain Pt is receiving PO [place] QID for chronic back pain and shingle pain to left thigh/abdomen. Shingles are not active at this time, but has nerve pain. Takes narcotic pain medications at home as well for this. Pt has been OOB multiple times this shift to [facility] for BM's. Dx with CDiff, receiving PO Vanco, steady on feet. Monitoring BP's, pt is hypertensive, last BP was 164/74. Has scheduled Q6H Vasotec for SBP > 170 or DBP > 95.
[2017-03-01] MEDS: Albuterol-Ipratropium 3 mL Inhalation Solution NEB SCH (07:40)
--- NOTE | 2017-03-01 09:22 | PCM.PNMED ---
Subjective Date of Service Mar 01, 2017 Subjective GASTROENTEROLOGY CONSULTATION Attending Physician: Eleazar Fortune MD Resident Physician: Sandy Rosas DO No acute events overnight. Patient started on PO Vanco for C.diff yesterday and diet advanced, which he is tolerating. He states that his symptoms are improving. He reports fewer liquid stools, one semi-solid bowel movement and no bloody or dark colored stool. He denies fever, chills, abdominal pain, nausea or vomiting. Exam Vital Signs Vital Sign - Last Date Time Temp Pulse Resp B/P Pulse Ox O2 Delivery O2 Flow Rate FiO2 03/01/17 08:17 36.7 49 18 173/81 99 Room Air Intake and Output 02/28/17 02/28/17 03/01/17 Cumulative From/Thru 15:00 23:00 07:00 02/27/17 12:31 - 03/01/17 05:38 Intake Total 1341 ml 1188 ml 4861 ml Output Total 2100 ml 3325 ml Balance -759 ml 1188 ml 1536 ml Intake Oral 200 ml 1400 ml IV Total 1141 ml 1188 ml 3461 ml Output Urine Total 475 ml Stool Total 750 ml Urine/Stool Mix 2100 ml 2100 ml # Bowel Movements 8 Exam General: Age appropriate, thin, elderly gentleman in no acute distress. HEENT: Atraumatic, normocephalic, PERRLA, sclera anicteric, mucous membranes moist/pink. Lungs: Clear to auscultation bilaterally with no crackles, wheezes, or rhonchi. Cardiovascular: Regular rate/rhythm. No murmurs Abdomen: Soft, non-distended, nontender. No rebound/guarding. Hypoactive bowel tones. No masses Extremities: No edema, muscle wasting upper/lower ext bilaterally. Skin: Warm and dry. No obvious rashes or ulcerations Neurological: AOx3, No focal neurologic deficit. Normal speech Psychiatric: Normal mood and affect. Communicating appropriately IVs and Medications Medications Reviewed: Medications were reviewed in detail Lab and Diagnostics Laboratory Tests Test 02/28/17 11:10 02/28/17 13:55 02/28/17 17:42 02/28/17 20:30 Hemoglobin 11.9g/dL (13.8-17.2) 12.4g/dL (13.8-17.2) 11.7g/dL (13.8-17.2) 11.3g/dL (13.8-17.2) Hematocrit 35.7% (41.0-50.0) 37.5% (41.0-50.0) 35.1% (41.0-50.0) 33.2% (41.0-50.0) Test 03/01/17 05:30 Hemoglobin 11.0g/dL (13.8-17.2) Hematocrit 33.4% (41.0-50.0) Sodium Level 147mEq/L (134-144) Potassium Level 3.6mEq/L (3.5-5.2) Chloride Level 108mEq/L (97-108) Carbon Dioxide Level 23mmol/L (18-29) Blood Urea Nitrogen 13mg/dL (8-27) Creatinine 1.12mg/dL (0.76-1.27) Estimat Glomerular Filtration Rate 68mL/min (>59) Glucose Level 115mg/dL (60-99) Calcium Level 8.2mg/dL (8.5-10.1) Microbiology 02/27/17 Blood Culture - NO GROWTH AFTER 24 HOURS 02/28/17 Stool- Positive C DIFF TOXIN A AND B BY PCR Result Diagram: 03/01/17 0530 03/01/17 0530 X-Rays, CTs and MRIs 02/27/17 - CT ABDOMEN AND PELVIS WITH CONTRAST IMPRESSION: 1. No acute intra-abdominal findings. The appendix was not visualized; however there are no ancillary findings to suggest acute appendicitis. 2. Diverticulosis. No acute diverticulitis. Diverticular bleeding in the setting of hematochezia cannot be excluded. Colonoscopy is recommended. 3. Intrahepatic biliary ductal dilatation unchanged from prior studies. Approved by: Abbey Villela M.D. on 02/27/2017 at 18:14 . Assessment & Plan 71-year-old gentleman with a history of macrocytic anemia, gastritis, COPD, nephrolithiasis, and HTN who presented to ED with the complaint of abdominal cramping, alternating diarrhea/constipation, and bright red blood in stool for the past 5 days. C. difficile colitis in patient with alternating diarrhea and constipation with bright red blood per rectum concerning for lower GI bleed. -Patient presented with bright red blood in stool for 5 days, CT findings consistent with diverticulosis and slight downtrend in H/H suggestive of acute GI bleeding. -On admission bowel prep initiated with colonoscopy planned for the following day. -Due to recent stool PCR positive for C.diff, stable H/H and no further symptoms of red blood per rectum. -H/H stable; No signs/symptoms of active GI bleeding -Recommended completion of C diff therapy with update colonoscopy in ~3weeks Macrocytic anemia, uncertain etiology. -Possibly due to malnutrition and/or malabsorption. Past medical hx also noted iron deficiency anemia. -MCV 103.2, H/H 11.9/35.8 -Recommend outpatient followup with PCP Mild leukocytosis -Secondary to stress reaction or possibly occult infection. Pt complaining of chills, clinically no signs of systemic infection. -Blood cultures, pending -Monitor CBC Additional problems managed by primary medicine team: -Patient with history of iron deficiency as well as macrocytic anemia -COPD -Hypertension -Protein-calorie malnutrition . Pain Evaluation: Adequate Pain Control GI Prophylaxis: Proton Pump Inhibitor VTE Prophylaxis: SCDs VTE Mechanical Devices: Intermittant Pneumatic CD Resuscitation Status: CPR: Attempt Resuscitation Attending Statement Patient seen and examined. Agree with assessment and plan as described by Dr Rosas. Shy seems to be doing well. No further overt bleeding. No further chills. Denies ab pain. Stools forming up. No blood. Plan is to continue complete course of therapy for the C diff and pursue colonoscopy in the next 3-4 wks as an outpatient. Sandy Rosas DO Mar 01, 2017 08:32 Eleazar Fortune MD Mar 01, 2017 22:03
[2017-03-01] MEDS ORDERED: Albuterol-Ipratropium 3 mL Inhalation Solution NEB PRN (09:35)
[2017-03-01] MEDS: Famotidine Inj 20 MG in IV Premix 1 EACH IV SCH ×2 (09:48→20:09)
--- NOTE | 2017-03-01 12:38 | NUR ---
NUTRITION FOLLOW UP Assess: 71 YO M admitted for lower GI bleed. Pt C.diff positive, colonoscopy canceled. Consult received for protein calorie malnutrition. Diet advanced to general with fair PO intake. Spoke with pt who states there is nothing we can do for him. He reports he has every imaginable test done to determine why he is losing weight and there have been no answers. Pt reports a good appetite and eats well at meals. Pt reports the initial weight loss started 3 years ago in which he then became stable at 110-115 lbs but he has recently lost more. Pt states he drinks 1 Ensure per day and is interested in having chocolate Ensure on his breakfast tray. Pt reports he had piles of information on nutrition for weight gain. PMHX: Nephrolithiasis, macrocytic anemia, renal insufficiency, gastritis, HTN, HLD, retinal artery occlusion, COPD. DIET: General. PO intake 50% LABS: Reviewed. Na 147, Glu 115, Ca 8.2 MEDICATIONS: Reviewed. GI: 1 BM 03/01. C.diff positive. SKIN: No issues noted. ANTHROPOMETRICS: Wt: 48.7 kg, BMI 17.9 kg/m2 = underweight, Admit wt: 45.6 kg. IBW: 61.8 kg (74%). Per EMR, it appears there has been progressive weight loss as far back as 2011 (64.9 kg), unclear how much pt has lost in the recent past as there are limited weights available. Pt reports UBW: 145-150 lbs (65.9-68.2 kg). Pt states wt loss started 3 years ago. ESTIMATED NEEDS: WT GAIN Calories: 0280-2107 kcal/day (30-35 kcal/kg BW) Protein: 74-93 g/day (1.2-1.5 g/kg IBW) NUTRITION DIAGNOSIS: 1) Inadequate oral intake related to unknown etiology as evidenced by BMI 17.9 kg/m2---PERSISTS. INTERVENTION: 1) Continue current diet as ordered. Will add chocolate Ensure to breakfast tray per pt's preference. 2) Pt declined high calorie/high protein nutrition therapy education. Pt states he has already been given a lot of information over the past 3 years. 3) Consider addition of probiotic due to C.diff diarrhea. MONITOR/EVALUATE: PO intake, diet tolerance, labs, diet advance, wt, GI/nutrition status. Follow per moderate nutrition risk guidelines.
--- NOTE | 2017-03-01 14:33 | NUR ---
Amlodipine/BP BP this morning 173/81, HR 49, PO Amlodipine given as ordered. Most recent BP 174/72, HR 54. [employer] held, HR continues to be low. Will make MD aware. Care ongoing.
--- NOTE | 2017-03-01 14:39 | NUR ---
Social Work Note: Readiness for Discharge Data& Assessment: EMR reviewed. Pt is on day 2 of hospitalization. Pt discussed in multidisciplinary rounds, pt is not medically ready for d/c, anticipate tomorrow. Pt will require GI follow up at d/c. Pt anticipated to discharge home with his to transport via POV. No discharge needs anticipated. SW will continue to follow. Plan: Anticipated discharge home via POV when medically ready. DOCUMENT DESIGN SPECIALIST to continue to follow if any needs or MD orders arise. Aurora Luis MSW
--- NOTE | 2017-03-01 14:44 | PCM.PNMED ---
Subjective Date of Service Mar 01, 2017 Subjective No overnight events. Says had 2 formed BM's this AM. Exam Vital Signs Vital Sign - Last Date Time Temp Pulse Resp B/P Pulse Ox O2 Delivery O2 Flow Rate FiO2 03/01/17 13:22 36.8 54 18 174/72 98 Room Air Intake and Output 02/28/17 02/28/17 03/01/17 Cumulative From/Thru 15:00 23:00 07:00 02/27/17 12:31 - 03/01/17 05:38 Intake Total 1341 ml 1188 ml 4861 ml Output Total 2100 ml 3325 ml Balance -759 ml 1188 ml 1536 ml Intake Oral 200 ml 1400 ml IV Total 1141 ml 1188 ml 3461 ml Output Urine Total 475 ml Stool Total 750 ml Urine/Stool Mix 2100 ml 2100 ml # Bowel Movements 8 Exam General: Age appropriate, thin, elderly gentleman in no acute distress. HEENT: Atraumatic, normocephalic, PERRLA, sclera anicteric, mucous membranes moist/pink. Lungs: Clear to auscultation bilaterally with no crackles, wheezes, or rhonchi. Cardiovascular: Regular rate/rhythm. No murmurs Abdomen: Soft, non-distended, nontender. No rebound/guarding. Hypoactive bowel tones. No masses Extremities: No edema, muscle wasting upper/lower ext bilaterally. Skin: Warm and dry. No obvious rashes or ulcerations Neurological: AOx3, No focal neurologic deficit. Normal speech Psychiatric: Normal mood and affect. Communicating appropriately IVs and Medications Medications Reviewed: Medications were reviewed in detail Lab and Diagnostics Result Diagram: 03/01/17 0530 03/01/17 0530 Microbiology Microbiology 02/27/17 Blood Culture - Preliminary, Resulted NO GROWTH AFTER 24 HOURS 02/28/17 Campylobacter (PCR) - Final, Complete Not Detected 02/28/17 Clostridium difficile Toxin A&B (M) - Final, Complete Pos For Cdif Toxin 02/28/17 Plesiomonas shigelloides (PCR) - Final, Complete Not Detected 02/28/17 Salmonella (PCR)(MARINO) - Final, Complete Not Detected 02/28/17 Yersinia enterocolitica (PCR) - Final, Complete Not Detected 02/28/17 Vibrio Species (PCR) - Final, Complete Not Detected 02/28/17 Vibrio Cholerae (PCR) - Final, Complete Not Detected 02/28/17 Enteroaggregative E. coli (PCR) - Final, Complete Not Detected 02/28/17 Enteropathogenic E. coli (PCR) - Final, Complete Not Detected 02/28/17 Enterotoxigenic E. coli (PCR) - Final, Complete Not Detected 02/28/17 E. coli Shiga-like Toxin (PCR) - Final, Complete Not Detected 02/28/17 Escherichia coli 0157 (PCR) - Final, Complete Not Detected 02/28/17 Enteroinvasive E. coli/Shigella PCR - Final, Complete Not Detected 02/28/17 Cryptosporidium (PCR) - Final, Complete Not Detected 02/28/17 Cyclospora cayetanensis (PCR) - Final, Complete Not Detected 02/28/17 Entamoeba histolytica (PCR) - Final, Complete Not Detected 02/28/17 Giardia lamblia (PCR) - Final, Complete Not Detected 02/28/17 Adenovirus Type F 40/41 (PCR) - Final, Complete Not Detected 02/28/17 Astrovirus (PCR) - Final, Complete Not Detected 02/28/17 Norovirus (PCR) - Final, Complete Not Detected 02/28/17 Rotavirus A (PCR) - Final, Complete Not Detected 02/28/17 Sapovirus I/II/IV/V (PCR) - Final, Complete X-Rays, CTs and MRIs 02/27/17 - CT ABDOMEN AND PELVIS WITH CONTRAST IMPRESSION: 1. No acute intra-abdominal findings. The appendix was not visualized; however there are no ancillary findings to suggest acute appendicitis. 2. Diverticulosis. No acute diverticulitis. Diverticular bleeding in the setting of hematochezia cannot be excluded. Colonoscopy is recommended. 3. Intrahepatic biliary ductal dilatation unchanged from prior studies. Approved by: Abbey Villela M.D. on 02/27/2017 at 18:14 . Assessment & Plan 71-year-old gentleman with a history of macrocytic anemia, gastritis, COPD, nephrolithiasis, and HTN who presented to ED with the complaint of abdominal cramping, alternating diarrhea/constipation, and bright red blood in stool for the past 5 days. C. difficile colitis in patient with alternating diarrhea and constipation with bloody stools, poa, active. -Patient presented with bright red blood in stool for 5 days, CT findings consistent with diverticulosis and slight downtrend in H/H suggestive of acute GI bleeding. -On admission bowel prep initiated with colonoscopy planned for the following day. -Colonoscopy cancelle by GI due to recent stool PCR positive for C.diff, stable H/H and no further symptoms of red blood per rectum. -H/H stable; No signs/symptoms of active GI bleeding - GI Following, Dr. Fortune- Recommend completion of C diff therapy and then follow up to perform colonoscopy in 3weeks HTN, chronic, active- - Managed without medication interventions, on HCTZ in past - added Amlodipine 5mg daily and HCTZ 12.5 mg daily. Macrocytic anemia, uncertain etiology. chronic, active. -Possibly due to malnutrition and/or malabsorption. Past medical hx also noted iron deficiency anemia. -MCV 103.2, H/H 11.9/35.8 - Previously seen by Dr. Enrique, 201 -Recommend outpatient followup with PCP Mild leukocytosis, poa, active. -Secondary to stress reaction or possibly occult infection. Pt complaining of chills, clinically no signs of systemic infection. -Blood cultures, pending -Monitor CBC Protein-calorie malnutrition, chronicity unknown, present on admission, active - On admit: BMI 16.7 - Weight approx 117lbs in 2014 - Dietary consultation - Pending results of colonoscopy, possible investigation into other possible etiologies: Poor dietary intake, other site of malignancy, malabsorption - [place] Continuous Churn consulted. COPD, presumed stable - Duonebs QIDWA + accunebs q2h prn Dispo- likely discharge 03/02 with outpatient follow up with GI in 3 weeks. Will need to complete 2 week course of Oral Vancomycin for C.Diff infection. GI Prophylaxis: Proton Pump Inhibitor VTE Prophylaxis: SCDs VTE Mechanical Devices: Intermittant Pneumatic CD Resuscitation Status: CPR: Attempt Resuscitation Abe North MD Mar 01, 2017 14:44 Discuss with GI. GI Prophylaxis: Proton Pump Inhibitor VTE Prophylaxis: SCDs VTE Mechanical Devices: Intermittant Pneumatic CD Resuscitation Status: CPR: Attempt Resuscitation Abe North MD Mar 01, 2017 14:44
--- NOTE | 2017-03-01 18:21 | NUR ---
Appetite/Pain/BM Pt has much better appetite today than pervious day and states "I feel much better today and ready to go home." Tolerating PO intake, no c/o N/V and no BM this shift. Nerve pain in hip today, PO [place] given; per pt effective for pain. Care ongoing.
[2017-03-02 00:28] VITALS: BP 163/77; PULSE 45; RESP 16; O2SAT 95
[2017-03-02] MEDS: Vancomycin 125 mg Oral Capsule PO SCH ×2 (02:40→08:44)
[2017-03-02 04:37] VITALS: PULSE 64
[2017-03-02] MEDS: HYDROcodone-APAP 5-325 mg Tablet PO PRN ×2 (04:51→10:09)
[2017-03-02 04:53] VITALS: BP 188/92; PULSE 50; RESP 18; O2SAT 99
[2017-03-02 05:31] LABS: BASOPHILS % (AUTO) 0.4 % (0-3); EOSINOPHILS % (AUTO) 2.3 % (0-5); MONOCYTES % (AUTO) 8.5 % (4-12); Mean Corpuscular Hemoglobin 33.2 pg (27.0-35.0); Mean Corpuscular Volume 102.2 fL (81-100); NEUTROPHILS % (AUTO) 66.2 % (40-74); Platelet Count 246 bil/L (150-400)
[2017-03-02 06:00] VITALS: PULSE 50; RESP 18; O2SAT 99
--- NOTE | 2017-03-02 06:10 | NUR ---
Blood Pressure, Pain Patient is alert and oriented x4, received [place] 1tab x2 for left hip pain, pt reports pain relief post meds. He denies chest pain, discomfort, SOB or nausea. BP elevated 188/92 this morning. MD notified am BP meds given early. HR 40's SB when asleep but 50's-60's SB-SR when awake. Pt did not have any BM tonight, denies any abdominal discomfort. Continues to get po vancomycin for Cdif. Pt appeared to be asleep most of the shift except during assessments and when in pain.
[2017-03-02 07:57] VITALS: BP 168/83; PULSE 60; RESP 18; O2SAT 98
[2017-03-02 08:00] VITALS: PULSE 64
[2017-03-02] MEDS: Famotidine Inj 20 MG in IV Premix 1 EACH IV SCH (08:44)
--- NOTE | 2017-03-02 08:52 | PCM.PNMED ---
Subjective Date of Service Mar 02, 2017 Subjective GASTROENTEROLOGY CONSULTATION Attending Physician: Eleazar Fortune MD Resident Physician: Sandy Rosas DO No acute events overnight. He did have some elevated blood pressures and bradycardia with HR in 50s-60s, dropping into high 40s while sleeping. Patient remained asymptomatic. He states that he is doing well and feels ready to go home. He denies fever, chills, abdominal pain, nausea, vomiting, diarrhea, and constipation. He states that he has not had liquid or solid stool since yesterday and denies bloody or dark colored stool. His appetite remains poor, which is chronic but he is tolerating his diet. He does report back and hip pain but states that this is chronic, tolerable and well controlled. Exam Vital Signs Vital Sign - Last Date Time Temp Pulse Resp B/P Pulse Ox O2 Delivery O2 Flow Rate FiO2 03/02/17 07:57 36.8 60 18 168/83 98 Room Air Intake and Output 03/01/17 03/01/17 03/02/17 Cumulative From/Thru 15:00 23:00 07:00 02/27/17 12:31 - 03/02/17 06:28 Intake Total 600 ml 1873 ml 1200 ml 8534 ml Output Total 775 ml 1000 ml 850 ml 5950 ml Balance -175 ml 873 ml 350 ml 2584 ml Intake Oral 600 ml 1280 ml 1200 ml 4480 ml IV Total 593 ml 4054 ml Output Urine Total 525 ml 1000 ml 850 ml 2850 ml Stool Total 250 ml 1000 ml Urine/Stool Mix 2100 ml # Voids 2 3 5 # Bowel Movements 1 0 0 9 Exam General: Age appropriate, thin, elderly gentleman in no acute distress. Lungs: Lung sounds diminished but mostly clear to auscultation. Faint bilateral expiratory wheezes. Cardiovascular: Regular rate/rhythm. No murmurs Abdomen: Soft, nondistended, nontender. No rebound/guarding. Hypoactive bowel tones. No masses Extremities: No edema, muscle wasting upper/lower ext bilaterally. Neurological: AOx3, No focal neurologic deficit. Normal speech IVs and Medications Medications Reviewed: Medications were reviewed in detail Lab and Diagnostics Laboratory Tests Test 03/02/17 04:50 White Blood Count 8.2th/mm3 (3.8-10.1) Red Blood Count 3.64mil/mm3 (4.40-5.80) Hemoglobin 12.1g/dL (13.8-17.2) Hematocrit 37.2% (41.0-50.0) Mean Corpuscular Volume 102.2fL (81-100) Mean Corpuscular Hemoglobin 33.2pg (27.0-35.0) Mean Corpuscular Hemoglobin Concent 32.5% (32.0-37.0) Red Cell Distribution Width 12.8% (12.3-15.4) Platelet Count 246bil/L (150-400) Neutrophils (%) (Auto) 66.2% (40-74) Lymphocytes (%) (Auto) 22.1% (14-46) Monocytes (%) (Auto) 8.5% (4-12) Eosinophils (%) (Auto) 2.3% (0-5) Basophils (%) (Auto) 0.4% (0-3) Sodium Level 143mEq/L (134-144) Potassium Level 4.0mEq/L (3.5-5.2) Chloride Level 105mEq/L (97-108) Carbon Dioxide Level 25mmol/L (18-29) Blood Urea Nitrogen 12mg/dL (8-27) Creatinine 1.13mg/dL (0.76-1.27) Estimat Glomerular Filtration Rate 68mL/min (>59) Glucose Level 105mg/dL (60-99) Calcium Level 9.1mg/dL (8.5-10.1) Result Diagram: 03/02/17 0450 03/02/17 0450 Microbiology 02/27/17 Blood Culture - NO GROWTH AFTER 24 HOURS 02/28/17 Stool- Positive C DIFF TOXIN A AND B BY PCR X-Rays, CTs and MRIs 02/27/17 - CT ABDOMEN AND PELVIS WITH CONTRAST IMPRESSION: 1. No acute intra-abdominal findings. The appendix was not visualized; however there are no ancillary findings to suggest acute appendicitis. 2. Diverticulosis. No acute diverticulitis. Diverticular bleeding in the setting of hematochezia cannot be excluded. Colonoscopy is recommended. 3. Intrahepatic biliary ductal dilatation unchanged from prior studies. Approved by: Abbey Villela M.D. on 02/27/2017 at 18:14 . Assessment & Plan 71-year-old gentleman with a history of macrocytic anemia, gastritis, COPD, nephrolithiasis, and HTN who presented to ED with the complaint of abdominal cramping, alternating diarrhea/constipation, and bright red blood in stool for the past 5 days. C. difficile colitis in patient with alternating diarrhea and constipation with bright red blood per rectum concerning for lower GI bleed. -Patient presented with bright red blood in stool for 5 days, CT findings consistent with diverticulosis and slight downtrend in H/H suggestive of acute GI bleeding. -Colonoscopy ultimately deferred to outpatient setting after stool PCR positive for C.diff and patient's H/H stable without further symptoms of red blood per rectum. -Started on PO Vancomycin, 125mg q6h on 02/28, to complete 14d course. -Stable for discharge from GI standpoint. -Recommended updated colonoscopy in 3-4 weeks after completion of C diff therapy Macrocytic anemia, uncertain etiology. Present on admission. Stable -Possibly due to malnutrition and/or malabsorption. Past medical hx also noted iron deficiency anemia. -MCV 103.2, H/H 11.9/35.8 -Recommend outpatient followup with PCP Mild leukocytosis, acute. Present on admission. Resolved. -Likely stress reaction and/or C.diff infection. -Blood cultures w/ No growth x2 days -Continue oral vancomycin, as above Additional problems managed by primary medicine team: -Patient with history of iron deficiency as well as macrocytic anemia -COPD -Hypertension -Protein-calorie malnutrition . Pain Evaluation: Adequate Pain Control GI Prophylaxis: Proton Pump Inhibitor VTE Prophylaxis: SCDs VTE Mechanical Devices: Intermittant Pneumatic CD Resuscitation Status: CPR: Attempt Resuscitation Attending Statement Patient discharged prior to my availability to round at bedside. This is therefore a no charge note. Sandy Rosas DO Mar 02, 2017 08:52 Eleazar Fortune MD Mar 02, 2017 17:25
--- NOTE | 2017-03-02 10:50 | PCM.DC.MED ---
Discharge Summary Date of Service Mar 02, 2017 Dates of Hospitalization Date of Hospital Admission Feb 27, 2017 at 19:49 Date of Discharge: Mar 02, 2017 Providers: Admitting Physician: Brien Pinedo MD Primary Care Physician: César Monet MD Attending Physician: Gilda Boland MD Diagnosis at Time of Discharge Diagnosis at Time of Discharge C. difficile colitis in patient with alternating diarrhea and constipation with bloody stools, poa, active. HTN, chronic, active- Macrocytic anemia, uncertain etiology. chronic, active. Mild leukocytosis, poa, resolved. Protein-calorie malnutrition, chronicity unknown, present on admission, active COPD, presumed stable Consultations GI- Dr. Fortune Procedures XRay, CTs & MRIs 02/27/17 - CT ABDOMEN AND PELVIS WITH CONTRAST IMPRESSION: 1. No acute intra-abdominal findings. The appendix was not visualized; however there are no ancillary findings to suggest acute appendicitis. 2. Diverticulosis. No acute diverticulitis. Diverticular bleeding in the setting of hematochezia cannot be excluded. Colonoscopy is recommended. 3. Intrahepatic biliary ductal dilatation unchanged from prior studies. Approved by: Abbey Villela M.D. on 02/27/2017 at 18:14 . Brief History Per HPI by Dr. Arguello on 02/27/17- Mr. Macias is a pleasant 71 year old gentleman with a history of iron deficiency anemia, COPD, and HTN, that presented to [facility] with a 5 day history of alternating diarrhea and constipation with presence of blood, associated intermittent abdominal discomfort and development of chills. Stat CT in the ED did not reveal any acute changes or etiologies of pain, but did reveal diverticulosis. The ED kindly contacted GI, Dr. Fortune, whom kindly agreed to pursue with colonoscopy. Patient was admitted for evaluation and treatment of lower GI bleed. - Hospital day one Mr. Macias states that his symptoms of alternating diarrhea and constipation have exacerbated over the recent 5 days, and he noted bright red blood within his stool. He also notes associated chills. Denies any weakness, fatigue, SOB, CP, palpitations. Admits to history of anemia. During the initrial examination, he requests to remain on his right side in bed, as he states ongoing chills, and is requesting for some rest prior to his initiation of bowel prep. Patient agrees to admission, and completion of GoLytely solution in preparation for colonoscopy. At time of admission, denies any ongoing abdominal discomfort, fever, dysuria, hematuria, extremity pain, vision changes, headache. States he is comfortable without complaint. In the ED: T36.8, P58, R14, BP 136/86, 98% RA; initial H/H at 1432 Hb 13.2, Hct 40.1; repeat HH at 1906 Hb 13.1, Hct 40.2; WBC 11.2 with 79.3 neut; electrolytes within range, Cr 1.33, lipase 11, LFTs within range; CT A/P with contrast revealed no acute intra-abdominal findings, but did reveal diverticulosis. ED consulted with GI, whom agreed to pursue with bowel prep and colonoscopy. Pt transferred to medical floor in stable condition. Hospital Course 71-year-old gentleman with a history of macrocytic anemia, gastritis, COPD, nephrolithiasis, and HTN who presented to ED with the complaint of abdominal cramping, alternating diarrhea/constipation, and bright red blood in stool for the past 5 days. C. difficile colitis in patient with alternating diarrhea and constipation with bloody stools, poa, active. -Patient presented with bright red blood in stool for 5 days, CT findings consistent with diverticulosis and slight downtrend in H/H suggestive of acute GI bleeding. -On admission bowel prep initiated with colonoscopy planned for the following day. -Colonoscopy cancelled by GI due to recent stool PCR positive for C.diff, stable H/H and no further symptoms of red blood per rectum. - Started PO Vancomycin 125mg every 6 hours on 02/28. Complete total 10 day course on March 10. - GI Following, Dr. Fortune- Recommend completion of C diff therapy and then follow up to perform colonoscopy in 3 weeks HTN, chronic, active- - Managed without medication interventions, on HCTZ in past - added Amlodipine 5mg daily and HCTZ 12.5 mg daily. Macrocytic anemia, uncertain etiology. chronic, active. -Possibly due to malnutrition and/or malabsorption. Past medical hx also noted iron deficiency anemia. -MCV 103.2, H/H 11.9/35.8 - Previously seen by Dr. Enrique, 201 -Recommend outpatient followup with PCP Mild leukocytosis, poa, resolved. -Secondary to stress reaction or possibly occult infection. Pt complaining of chills, clinically no signs of systemic infection. -Blood cultures, pending -Monitored CBC Protein-calorie malnutrition, chronicity unknown, present on admission, active - On admit: BMI 16.7 - Weight approx 117lbs in 2015 - Poor dietary intake, other site of malignancy, malabsorption - Diversity Manager recs provided to patient. COPD, presumed stable - Duonebs QIDWA + accunebs q2h prn GI Prophylaxis: Proton Pump Inhibitor VTE Prophylaxis: SCDs VTE Mechanical Devices: Intermittant Pneumatic CD Resuscitation Status: CPR: Attempt Resuscitation Dispo- Discharge home. Medication changes- added Amlodipine 5mg daily and HCTZ 12.5 mg daily for blood pressure. Started PO Vancomycin 125mg every 6 hours on 02/28. Complete total 10 day course on March 10. Follow up with GI, Dr. Fortune in 3 weeks Followup with PCP in 1 week for blood pressure check and to review new medications. Exam Vital Signs (Last) Date Time Temp Pulse Resp B/P Pulse Ox O2 Delivery O2 Flow Rate FiO2 03/02/17 07:57 36.8 60 18 168/83 98 Room Air Exam General: Age appropriate, thin, elderly gentleman in no acute distress. HEENT: Atraumatic, normocephalic, PERRLA, sclera anicteric, mucous membranes moist/pink. Lungs: Clear to auscultation bilaterally with no crackles, wheezes, or rhonchi. Cardiovascular: Regular rate/rhythm. No murmurs Abdomen: Soft, non-distended, nontender. No rebound/guarding. Hypoactive bowel tones. No masses Extremities: No edema, muscle wasting upper/lower ext bilaterally. Skin: Warm and dry. No obvious rashes or ulcerations Neurological: AOx3, No focal neurologic deficit. Normal speech Psychiatric: Normal mood and affect. Communicating appropriately Test 02/27/17 14:32 02/27/17 17:21 02/27/17 21:05 02/28/17 05:05 Total Bilirubin 0.5mg/dL (0.0-1.2) Aspartate Amino Transf (AST/SGOT) 15U/L (0-50) Alanine Aminotransferase (ALT/SGPT) 14U/L (0-44) Alkaline Phosphatase 67U/L (25-160) Total Protein 7.2g/dL (6.4-8.4) Albumin 3.9g/dL (3.4-5.0) Lipase 11U/L (13-60) Hold Little Top Tube Received (Received) Hold Urine Received (Received) Urine Color Yellow (YELLOW) Urine Appearance Clear (CLEAR,HAZY) Urine pH 5.5 (5.0-8.0) Urine Specific [place] 1.020 (1.003-1.035) Urine Protein 30mg/dL (NEG,TRACE) Urine Glucose (UA) Negativemg/dL (NEGATIVE) Urine Ketones Negativemg/dL (NEGATIVE) Urine Occult Blood Small (NEGATIVE) Urine Nitrite Negative (NEGATIVE) Urine Bilirubin Negative (NEGATIVE) Urine Urobilinogen Normalmg/dL (NORMAL) Urine Leukocyte Esterase Negative (NEGATIVE) Urine RBC 0-2/hpf (0-2) Urine WBC 0-5/hpf (0-5) Urine Epithelial Cells Few/hpf (NONE-MOD) Urine Crystals None seen (NONE SEEN) Urine Bacteria Few/hpf (NONE-FEW) Urine Hyaline Casts None/lpf (NONE) Urine Granular Casts None seen (NONE SEEN) Urine Waxy Casts None seen (NONE SEEN) Urine Red Blood Cell Casts None seen (NONE SEEN) Urine White Blood Cell Casts None seen (NONE SEEN) Urine Mucus None seen (None Seen) Urine Trichomonas None seen (NONE SEEN) Urine Yeast None (NONE SEEN) Urinalysis Comment None Urine Culture Reflexed Not indicated Phosphorus Level 2.4mg/dL (2.5-4.9) Magnesium Level 2.0mg/dL (1.6-2.6) Thyroid Stimulating Hormone (TSH) 0.855uIU/mL (0.450-4.500) Free Thyroxine 1.80ng/dL (0.82-1.77) Test 03/02/17 04:50 White Blood Count 8.2th/mm3 (3.8-10.1) Red Blood Count 3.64mil/mm3 (4.40-5.80) Hemoglobin 12.1g/dL (13.8-17.2) Hematocrit 37.2% (41.0-50.0) Mean Corpuscular Volume 102.2fL (81-100) Mean Corpuscular Hemoglobin 33.2pg (27.0-35.0) Mean Corpuscular Hemoglobin Concent 32.5% (32.0-37.0) Red Cell Distribution Width 12.8% (12.3-15.4) Platelet Count 246bil/L (150-400) Neutrophils (%) (Auto) 66.2% (40-74) Lymphocytes (%) (Auto) 22.1% (14-46) Monocytes (%) (Auto) 8.5% (4-12) Eosinophils (%) (Auto) 2.3% (0-5) Basophils (%) (Auto) 0.4% (0-3) Sodium Level 143mEq/L (134-144) Potassium Level 4.0mEq/L (3.5-5.2) Chloride Level 105mEq/L (97-108) Carbon Dioxide Level 25mmol/L (18-29) Blood Urea Nitrogen 12mg/dL (8-27) Creatinine 1.13mg/dL (0.76-1.27) Estimat Glomerular Filtration Rate 68mL/min (>59) Glucose Level 105mg/dL (60-99) Calcium Level 9.1mg/dL (8.5-10.1) Microbiology Results 02/27/17 Blood Culture - NO GROWTH AFTER 24 HOURS 02/28/17 Stool- Positive C DIFF TOXIN A AND B BY PCR Discharge Medications Discharge Medications Amlodipine (Amlodipine) 5 Mg Tablet 5 MG PO DAILY Prescribed by: GILDA BOLAND MD Aspirin Chew (Aspirin Chew) 81 Mg Chew 81 MG PO DAILY (Reported) Hydrochlorothiazide (Hydrochlorothiazide) 25 Mg Tablet 12.5 MG PO DAILY Prescribed by: GILDA BOLAND MD Pravastatin (Pravastatin) 20 Mg Tablet 10 MG PO DAILY (Reported) Tiotropium [place] (Spiriva) 18 Mcg Cap.w.dev 18 MCG IH DAILY (Reported) Vancomycin (Vancomycin) 125 Mg Capsule 125 MG PO Q6 Prescribed by: GILDA BOLAND MD As needed Hydrocodone-Acetaminophen 5-325 mg (Hydrocodone-Acetaminophen 5-325 mg) 1 Each Tablet 1 EACH PO QID PRN PRN For Pain (Reported) Polyethylene Glycol 3350 (Miralax) 17 Gm Powd.pack 17 GM PO DAILY PRN PRN For Constipation (Reported) Additional med instructions Added Amlodipine 5mg daily and HCTZ 12.5 mg daily for blood pressure. Started PO Vancomycin 125mg every 6 hours on 02/28. Complete total 10 day course on March 10. Prescriptions sent to pharmacy. Followup Plan Disposition: Discharge home. Follow-up plan Follow up with GI, Dr. Fortune in 3 weeks Followup with PCP in 1 week for blood pressure check and to review new medications. Follow-up Provider: César oMnet MD Follow-up with PCP in: 1 week Provider: Eleazar Fortune MD Follow-up in: 3 weeks Time spent Greater than 30 minutes was spent in preparation of discharge with greater than 50% of that time dedicated to patient counseling and coordination of care. Gilda Boland MD Mar 02, 2017 10:50
[2017-03-02] MEDS ORDERED: AMLO5TAB2 PO (10:54)
[2017-03-02] MEDS ORDERED: VANC125C3 PO (10:54)
[2017-03-02] MEDS ORDERED: HYDR25TA4 PO (10:54)
--- NOTE | 2017-03-02 10:56 | PCM.DIMED ---
Discharge Instructions Date of Service Mar 02, 2017 Dates of Hospitalization Feb 27, 2017 at 19:49 Discharge Diagnosis Discharge Diagnosis C. difficile colitis in patient with alternating diarrhea and constipation with bloody stools, poa, active. HTN, chronic, active- Macrocytic anemia, uncertain etiology. chronic, active. Mild leukocytosis, poa, resolved. Protein-calorie malnutrition, chronicity unknown, present on admission, active COPD, presumed stable Medication Instructions Additional med instructions Added Amlodipine 5mg daily and HCTZ 12.5 mg daily for blood pressure. Started PO Vancomycin 125mg every 6 hours on 02/28. Complete total 10 day course on March 10. Prescriptions sent to pharmacy. Diet Discharge Diet: No restrictions Activity Discharge Activity: No restrictions Call your provider Call your provider for: Bleeding Patient Instructions Follow-up plan Follow up with GI, Dr. Fortune in 3 weeks Followup with PCP in 1 week for blood pressure check and to review new medications. Follow-up Provider: César Monet MD Follow-up with PCP in: 1 week Provider: Eleazar Fortune MD Follow-up in: 3 weeks Abe North MD Mar 02, 2017 10:56
--- NOTE | 2017-03-02 10:58 | NUR ---
Social Work Note: Discharge Data: EMR reviewed. Pt is on day 3 of hospitalization. Pt discussed in multidisciplinary rounds, pt is medically ready for d/c. Pt to discharge home with his to transport via POV. No discharge needs. Assessment: Pt who is independent at baseline. Plan: Pt discussed in multidisciplinary rounds, pt is medically ready for d/c. Pt to discharge home with his to transport via POV. No discharge needs. WARNER Hartley
--- NOTE | 2017-03-02 11:03 | NUR ---
Dye catheter Pt refuses to have Dye catheter removed until PT worked with him today. All risks explained to pt. Pt continues to refuse having Dye removed. Dye catheter removed immediately after PT worked with Pt. No issues noted. Yellow clear urine noted in Dye prior to removing. Care continues Addendum: 03/02/17 at 1225 by ESEQUIEL CONLEY RN WRONG NOTE ON WRONG Pt
--- NOTE | 2017-03-02 12:26 | NUR ---
DC All discharge instructions reviewed with pt and . Per pt no further questions. Medications sent to [facility] in [place] per pt request. Pt refuses to use WC out and ambulated out on own with at side. All belongings in hand. Care discontinues
== END 2017-03-02 12:25 | disposition home or self-care (01) | DRG 372 ==
LOC: SED 12:11 → OBSVTOIN 19:49 → OSC 19:49 → INTOOBSV 19:49
PROVIDERS: ADMIT Hospitalist; ATTEND Internal Medicine
DX: A04.7 Enterocolitis due to Clostridium difficile (principal); E46 Unspecified protein-calorie malnutrition; Z68.1 Body mass index [BMI] 19.9 or less, adult; D53.9 Nutritional anemia, unspecified; J44.9 Chronic obstructive pulmonary disease, unspecified; I10 Essential (primary) hypertension; E78.5 Hyperlipidemia, unspecified; F17.210 Nicotine dependence, cigarettes, uncomplicated; Z79.82 Long term (current) use of aspirin

== ENCOUNTER 2017-03-28 21:03 | Inpatient (IN) | payer MEDICARE ==
[~2017-03-28] VITALS: Ht 165.1 cm; Wt 45.2 kg
[~2017-03-28 21:03] MED LIST changes: +AMLO5TAB2 PO; -CEPH500C PO; -HYDR12.5 PO; +HYDR25TA4 PO; -LIDOCAINE PATCH; -OMEP20CA11 PO; -SULF1TAB7 PO; +VANC125C3 PO
[2017-03-28 21:07] VITALS: BP 131/91; PULSE 109; RESP 18; O2SAT 96
[2017-03-28 22:16] LABS: BASOPHILS % (AUTO) 0.1 % (0-3); EOSINOPHILS % (AUTO) 0 % (0-5); MONOCYTES % (AUTO) 6.9 % (4-12); Mean Corpuscular Hemoglobin 33.8 pg (27.0-35.0); Mean Corpuscular Volume 100.3 fL (81-100); NEUTROPHILS % (AUTO) 89.8 % (40-74); Platelet Count 295 bil/L (150-400)
--- NOTE | 2017-03-28 22:27 | ED.REPORT ---
HPI-General Illness Date of Service Mar 28, 2017 ED Provider: Steven Hoover DO Pt is a 71 year old male with a history of HTN, COPD, diverticulitis, hyperlipidemia, and shingles who presents to the ED complaining of abdominal pain onset 14 hours ago. He c/o associated nausea, vomiting, weakness, mild non- productive cough, diaphoresis, fever, and chills. He denies diarrhea and any other symptoms. Nursing Notes Stated Complaint: FLU LIKE SYMPTOMS Chief Complaint: Male Abdominal Pain Nursing Notes Reviewed: Yes Allergies: Coded Allergies: No Known Allergies (Verified Allergy, Unknown, 03/28/17) Scheduled Amlodipine (Amlodipine) 5 Mg Tablet 5 MG PO DAILY Aspirin Chew (Aspirin Chew) 81 Mg Chew 81 MG PO DAILY Hydrochlorothiazide (Hydrochlorothiazide) 25 Mg Tablet 12.5 MG PO DAILY Pravastatin (Pravastatin) 20 Mg Tablet 10 MG PO DAILY Tiotropium [place] (Spiriva) 18 Mcg Cap.w.dev 18 MCG IH DAILY Vancomycin (Vancomycin) 125 Mg Capsule 125 MG PO Q6 Scheduled PRN Hydrocodone-Acetaminophen 5-325 mg (Hydrocodone-Acetaminophen 5-325 mg) 1 Each Tablet 1 EACH PO QID PRN PRN For Pain Polyethylene Glycol 3350 (Miralax) 17 Gm Powd.pack 17 GM PO DAILY PRN PRN For Constipation General Time Seen by MD: 23:09 Chief Complaint Abdominal pain Hx Obtained From: Patient Arrived By: Walk-in Onset Occurred: 13 - 16 hours ago Symptom Duration: Since onset Location: : Abdomen Quality: Painful Radiation: : Does not radiate Severity: Current: Moderate Severity: Maximum: Moderate Recent Healthcare: Recent doctor visit Similar Sx Previous: No Past Medical History Past Medical History Retinal artery Hx of kidney stones Diverticulitis Reports: Asthma, COPD, Hyperlipidemia, Hypertension Past Surgical History Cardiac cath hernia repair Back surgery Smoking History Current Every Day Smoker 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 Physical Exam Vital Signs Vital Signs Date Time Temp Pulse Resp B/P Pulse Ox O2 Delivery O2 Flow Rate FiO2 9/27/17 00:30 36.8 87 16 149/68 96 Room Air 03/28/17 23:10 75 18 131/71 96 Room Air 03/28/17 21:07 37.2 109 18 131/91 96 Room Air Initial VS: Reviewed Head / Eyes: Atraumatic, Normocephalic Neck: Supple, Full range of motion Respiratory: Breath sounds normal, Clear to auscultation, No respiratory distress Extremities: Vascular intact, Neuro intact Skin: Warm, Dry, No cyanosis Neurologic: Alert, Oriented, Nonfocal Psychiatric: Mood/affect normal, Behavior normal General/Constitutional: Awake, Alert Acutely ill appearing. Globally weak. Cardiovascular: Regular rhythm, Heart sounds NL Heart Rate / Rhythm: Positive: Tachycardia Abdomen: Atraumatic, Soft Tender LLQ Interpretation & Diagnostics Lab Results Interpretation Result Diagram: 03/28/173 03/28/17 2213 Test 03/28/17 21:54 03/28/17 22:13 03/28/17 23:15 Hold Urine Received (Received) White Blood Count 20.1th/mm3 (3.8-10.1) Red Blood Count 3.96mil/mm3 (4.40-5.80) Hemoglobin 13.4g/dL (13.8-17.2) Hematocrit 39.7% (41.0-50.0) Mean Corpuscular Volume 100.3fL (81-100) Mean Corpuscular Hemoglobin 33.8pg (27.0-35.0) Mean Corpuscular Hemoglobin Concent 33.8% (32.0-37.0) Red Cell Distribution Width 13.2% (12.3-15.4) Platelet Count 295bil/L (150-400) Neutrophils (%) (Auto) 89.8% (40-74) Lymphocytes (%) (Auto) 2.9% (14-46) Monocytes (%) (Auto) 6.9% (4-12) Eosinophils (%) (Auto) 0% (0-5) Basophils (%) (Auto) 0.1% (0-3) Sodium Level 138mEq/L (134-144) Potassium Level 4.8mEq/L (3.5-5.2) Chloride Level 102mEq/L (97-108) Carbon Dioxide Level 21mmol/L (18-29) Blood Urea Nitrogen 29mg/dL (8-27) Creatinine 1.44mg/dL (0.76-1.27) Estimat Glomerular Filtration Rate 51mL/min (>59) Glucose Level 106mg/dL (60-99) Lactic Acid Level 0.2mmol/L (0.4-2.0) Calcium Level 9.1mg/dL (8.5-10.1) Magnesium Level 1.9mg/dL (1.6-2.6) Total Bilirubin 0.5mg/dL (0.0-1.2) Aspartate Amino Transf (AST/SGOT) 16U/L (0-50) Alanine Aminotransferase (ALT/SGPT) 10U/L (0-44) Alkaline Phosphatase 84U/L (25-160) Total Protein 7.0g/dL (6.4-8.4) Albumin 3.7g/dL (3.4-5.0) Lipase 9U/L (13-60) Procalcitonin 0.57ng/mL (0.00-0.08) Hold Little Top Tube Received (Received) Urine Color Yellow (YELLOW) Urine Appearance Clear (CLEAR,HAZY) Urine pH 30 (5.0-8.0) Urine Specific [place] 1.020 (1.003-1.035) Urine Protein 30mg/dL (NEG,TRACE) Urine Glucose (UA) Negativemg/dL (NEGATIVE) Urine Ketones Negativemg/dL (NEGATIVE) Urine Occult Blood Moderate (NEGATIVE) Urine Nitrite Negative (NEGATIVE) Urine Bilirubin Negative (NEGATIVE) Urine Urobilinogen Normalmg/dL (NORMAL) Urine Leukocyte Esterase Negative (NEGATIVE) Urine RBC 3-10/hpf (0-2) Urine WBC 0-5/hpf (0-5) Urine Epithelial Cells Occasional/hpf (NONE-MOD) Urine Crystals None seen (NONE SEEN) Urine Bacteria Few/hpf (NONE-FEW) Urine Hyaline Casts None/lpf (NONE) Urine Granular Casts Occasional (NONE SEEN) Urine Waxy Casts None seen (NONE SEEN) Urine Red Blood Cell Casts None seen (NONE SEEN) Urine White Blood Cell Casts None seen (NONE SEEN) Urine Mucus None seen (None Seen) Urine Trichomonas None seen (NONE SEEN) Urine Yeast None (NONE SEEN) Urinalysis Comment None X-Ray Chest Interpretation Chest Xray Interpretation: Negative View: Portable, 1 view Interpretation / Wet Read by: Wet read ED physician CT Abd / Pelvis Interpretation CONCLUSION: Large amount of retained fecal material throughout the colon. Mild biliary dilatation may be chronic. Correlate with laboratory values. Moderate right renal cortical atrophy and left renal cortical scarring. Transmitted to the ED at 00:11 by Jovani Lamar M.D. Interpretation / Wet Read by: Interpret - Radiologist Re-Eval/Medical Decision Source of Hx: Old records Time of Eval: 23:09 Re-Evaluation/Progress Note: Informed pt of plan for IV fluids, nausea medication, CT, and chest x-ray. I also informed him of plan for admission. Pt understands and agrees with plan. All questions addressed. Consultation : Referral / Consult Name: Chelsea Awad DO Consulted With: Hospitalist Call Returned at: 01:47 Property Portfolio Officer: Will see patient, Agrees with eval, Agrees with plan, Accepts admit Counseled Regarding: Diagnosis, Lab results, Need for admission Discharge & Departure Primary Impression: Abdominal pain Abdominal location: unspecified location Qualified Code: R10.9 - Unspecified abdominal pain Additional Impressions: Leukocytosis Leukocytosis type: unspecified Qualified Code: D72.829 - Elevated white blood cell count, unspecified Dehydration Disposition: ADMITTED TO HOSPITAL Discharge Condition All VS Reviewed: Yes Condition: Stable Referrals: César Monet MD (PCP) Scribe Attestation Portions of this note were transcribed by Patrica Garibay. I, Dr. Hoover personally performed the history, physical exam and medical decision-making; I reviewed and confirmed the accuracy of the information in the transcribed note. Signed by : Sharon Jett, 03/28/17. copies to: César Monet MD, Howard L MD Mar 28, 2017 22:27 Patrica Hutchison Mar 29, 2017 00:39
[2017-03-28 22:40] LABS: Magnesium 1.9 mg/dL (1.6-2.6)
[2017-03-28 23:10] VITALS: BP 131/71; PULSE 75; RESP 18; O2SAT 96
[2017-03-28] MEDS ORDERED: 0.9% Sodium Chloride 1,000 ML IV ONE (23:15)
[2017-03-28] MEDS ORDERED: Piperacillin-Tazo 3.375 Gm Inj 3.375 GM in Dextrose 5% Minibag Plus 50 ML IV ONE (23:15)
[2017-03-28 23:34] LABS: APPEARANCE,URINE CLEAR (CLEAR,HAZY); COLOR,URINE YELLOW (YELLOW); OCCULT BLOOD,URINE MODERATE (NEGATIVE); PH,URINE 30 (5.0-8.0); UROBILINOGEN,URINE NORMAL (NORMAL)
[2017-03-29] VITALS (11 sets, daily range): BP systolic 141–191; BP diastolic 68–88; PULSE 39–95; RESP 16–21; O2SAT 95–97
[2017-03-29] MEDS: Ondansetron 2 mg/mL 2 mL Inj IVPUSH PRN ×2 (00:05→04:06)
[2017-03-29] MEDS ORDERED: Ondansetron 2 mg/mL 2 mL Inj IVPUSH PRN ×2 (02:05→03:10)
[2017-03-29] MEDS ORDERED: Alum-Mag Hydrox-Simeth 30 mL Suspension PO PRN ×2 (02:05→03:10)
[2017-03-29] MEDS ORDERED: 0.9% Sodium Chloride 1,000 ML IV SCH ×2 (03:10→03:17)
[2017-03-29] MEDS ORDERED: Polyethylene Glycol (PEG) 17 Gm Powder PO PRN (03:10)
--- NOTE | 2017-03-29 04:18 | NUR ---
Admit Pt arrived on the floor. Alert and oriented. Reports of feeling a little weak and nauseated. Administered zofran PRN. No complains after. Admit questions finished. Med rec source per pt interview. Denies chest pain. Telemetry monitoring noted SR with frequent PAC's per monitor kimberly. BP elevated and MD is aware. IVF NS 150ml/hr as ordered. Continuing to monitor. Addendum: 03/29/17 at 0613 by ALEXEI XIAO RN BP 186/85. MD notified. Administered Vasotec as ordered. BP decreased to 141/75. Continuing to monitor.
--- NOTE | 2017-03-29 04:36 | PCM.HPMED ---
Subjective Date of Service Mar 29, 2017 Primary Provider: Admitting Physician: Chelsea Awad DO Primary Care Physician: César Monet MD Attending Physician: Chelsea Awad DO Chief Complaint: Nausea and vomiting History of Present Illness: Shy Hewitt is a 71-year-old man with past medical history significant for iron deficiency anemia, COPD, hypertension, and recent diagnosis of C. difficile who completed treatment with oral vancomycin 2 weeks ago who presents to [facility] with 16 hours of nausea, vomiting, abdominal pain and generalized malaise. He states that following his recent hospitalization January and completion of his antibiotics he has felt much improved. He denies any ongoing diarrhea. He states that he has been having 2-3 formed bowel movements per day. Last bowel movement was just prior to presentation. He has had 3 to 4 episodes of emesis last episode was also just prior to presentation. He has not had anything besides ice chips and water for the past 24 hours. He has some associated subjective fever, chills and nonproductive cough. He denies any dysuria, hematuria, chest pain, shortness of breath, lightheadedness, headache, lower extremity edema, or hematemesis. On presentation to the ED patient's temperature was 37.2, pulse was 109, respiratory rate 18 satting 96% on room air, blood pressure 131/91. Initial labs revealed white blood cell count of 20.1 with 89.8% neutrophil predominance. Hemoglobin and hematocrit stable with the elevated MCV at 100.3. Patient's BUN and creatinine were slightly elevated at 29 and 1.44. Procalcitonin 0.57 with a negative lactic acid 0.2. CT of the abdomen showed large amount of retained fecal material throughout the colon along with mild biliary dilatation chronicity unknown. Blood cultures were sent and patient was given 1 L NS along with Zosyn in the ED. At the time of my examination the patient states that he is feeling 70% better than when he arrived at the ED. Review of Systems: Comprehensive review of systems was conducted with the patient and found to be negative except as noted above in HPI. 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 Left inguinal hernia repair in 1972. 2. Previous right ureteroscopic laser lithotripsy March 21, 2011. 3. Distal ureteral stones. 4. Cardiac catheterization 5. 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 HEENT: Normocephalic, atraumatic. External ears without defect. Pupils equal, round, and reactive to light and accommodation. Anicteric sclerae, moist conjunctivae, and no lid lag. Neck: Supple with full range of motion. No jugular venous distension. Cardiovascular: Regular rate and rhythm without appreciable murmurs. Pulmonary: Clear to auscultation bilaterally with no crackles, wheezes, or rhonchi. Normal respiratory effort with no use of accessory muscles. Abdomen: Bowel tones present. Soft, minimally tender to palpation greatest in the left lower quadrant, scaphoid. Extremities: Clubbing present. No cyanosis, edema, or lymphadenopathy appreciated. Skin: Normal temperature, turgor, and texture; no rash, ulcers, or subcutaneous nodules appreciated. Neurological: Cranial nerves grossly intact. Normal muscle strength, tone, and bulk. Reflexes, coordination, and sensory function within normal limits. No known gait impairment. Psychiatric: Normal mood and affect. Alert and oriented to person, place, and time. Lab and Diagnostics Result Diagram: 03/28/17221203/28/172212 Microbiology Blood cultures drawn and sent. X-Rays, CTs and MRIs X-Ray Chest Interpretation Chest Xray Interpretation: Negative View: Portable, 1 view Interpretation / Wet Read by: Wet read ED physician CT Abd / Pelvis Interpretation CONCLUSION: Large amount of retained fecal material throughout the colon. Mild biliary dilatation may be chronic. Correlate with laboratory values. Moderate right renal cortical atrophy and left renal cortical scarring. Transmitted to the ED at 00:11 by Jovani Lamar M.D. Interpretation / Wet Read by: Interpret - Radiologist Assessment & Plan Shy Hewitt is a 71-year-old man with past medical history significant for COPD, hypertension, and recent diagnosis of C. difficile who completed treatment with oral vancomycin 2 weeks ago who presents to [facility] with 16 hours of nausea, vomiting, abdominal pain and generalized malaise. Abdominal pain with nausea and vomiting, present on admission, active. - CT abdomen showed showed large amount of retained fecal material. - Patient states that he has been having regular bowel movements 2-3 times per day last bowel movement and emesis was just prior to presentation to the ED. - Etiology possibly secondary to small bowel obstruction versus recurrent C. difficile infection versus other infectious etiology. - 1 L NS given in the ED. Additional 1 L NS to be given at a rate of 150 mL per hour. - Low threshold to repeat abdominal imaging and/or place NG tube for concern for SBO. Leukocytosis, present on admission, active. - Etiology possibly secondary to recurrent or incomplete treatment of C. difficile infection versus other infectious etiology. - On admit WBC 20.1 with a neutrophil predominance. - 1 dose of Zosyn given in the ED. We will continue with Zosyn at this time. Day team to consider adding oral vancomycin for possible C. difficile infection. - Blood cultures obtained and pending. - C. difficile PCR pending stool sample. - Repeat CBC with differential in morning. Recent C. difficile infection, present on admission, active. - Patient completed treatment with oral vancomycin approximately 2 weeks ago. - C. difficile PCR ordered and pending stool sample. - Day team to consider adding oral vancomycin for possible C. difficile infection. Gross and microscopic hematuria, present on admission, active. - Patient has a history of nephrolithiasis. - Consider repeat UA in the morning. - Consider further outpatient workup. Acute on chronic kidney injury, present on admission, active. - Etiology likely hypovolemia from nausea and vomiting. - On admission creatinine 1.44. Baseline creatinine is 1.1-1.2. - IV fluids at a rate of 150 mL/h for 1 L. - Repeat BMP in the morning. Chronic stable conditions COPD - Continue home medication: Spiriva daily. Hypertension - Hypertensive medications recently discontinued. Protein-calorie malnutrition - On admit: BMI 16.6 - Patient states that since admission for C. difficile he has regained 3-5 pounds. PRN Medications - Acetaminophen as needed for mild pain/fever/headache - Bowel regimen as needed - Antiemetic as needed Patient is admitted under inpatient status with expected length of stay greater than 2 midnights due to severity of presenting symptoms, risk of adverse event, and complexity of treatment plan. Pain Evaluation: Adequate Pain Control GI Prophylaxis: Not indicated VTE Prophylaxis: Sub-Q Heparin (Unfractionated) Resuscitation Status: DNR/DNI:Do Not Resuscitate/Intubate Attending Statement The patient was seen and examined together with house staff on 03/29/2017 and I agree with the history, exam and plan as outlined in the note above. PEPE OCAMPO DO Mar 29, 2017 02:56 Chelsea Awad DO Mar 29, 2017 06:27
[2017-03-29] MEDS: HYDROcodone-APAP 5-325 mg Tablet PO PRN ×4 (05:15→21:58)
[2017-03-29 07:14] LABS: BASOPHILS % (AUTO) 0 % (0-3); EOSINOPHILS % (AUTO) 0 % (0-5); MONOCYTES % (AUTO) 7.4 % (4-12); Mean Corpuscular Hemoglobin 33.1 pg (27.0-35.0); Mean Corpuscular Volume 100.9 fL (81-100); NEUTROPHILS % (AUTO) 88.4 % (40-74); Platelet Count 246 bil/L (150-400)
[2017-03-29] MEDS: Tiotropium 18mcg/Cap 5 Capsule Inhaler Kit INHALATION SCH (07:35)
[2017-03-29] MEDS: Heparin 5,000 Unit/mL Inj SUBQ SCH ×2 (07:50→17:46)
[2017-03-29] MEDS ORDERED: Piperacillin-Tazo 3.375 Gm Inj 3.375 GM in Dextrose 5% Minibag Plus 50 ML IV SCH (08:30)
--- NOTE | 2017-03-29 09:23 | NUR ---
Social Work-initial assessment: Data:See initial assessment. Pt is a 71 y/o male who was admitted on 03/29/17 for abdominal pain per H&P. Pt's insurance is [email or web address] and PCP is Alejandro Ferris MD. EMR Reviewed. SW met with pt at bedside, SW role explained. Pt is alert and oriented x3. Pt resides at home in [place] with his Moni in a 2 story home, where he remains independent with ADLS. Pt does not use any DME and does drive. Pt has no HH or SNF history. Pt has no alf care insurance or VA benefits. SW discussed DPOA/ advanced directive,pt confirms he has completed this, SW encouraged a copy to be brought in. Pt confirms his will provide transport home at discharge. No concerns noted around pt's capacity for self care from RN or . Pt has been up independent in his room. SW provided pt with discharge planning checklist and encouraged him to call with any questions, phone number provided on white board in room. No anticipated discharge needs. SW will continue to follow if needs arise. Assessment:Pt who is independent at baseline. Plan:Pt to discharge home when medically stable via POV. No anticipated discharge needs. SW will continue to follow if needs arise. WARNER Bolanos Addendum: 03/29/17 at 0925 by ELIJAH CLEMENS Amended: Links added.
--- NOTE | 2017-03-29 09:30 | DRSVH ---
PROCEDURE: X-RAY CHEST ONE VIEW, PORTABLE ([id number]) INDICATIONS: SEPTIC TECHNIQUE: One view of the chest was acquired. [facility], 15:12. [facility], 11/19/2014, 14:25. FINDINGS: Surgical changes and devices: None. Lungs and pleura: No pleural effusions or pneumothorax. Lungs are clear. Mediastinum: Mediastinal contours appear normal. Heart size is normal. Bones and chest wall: No suspicious bony lesions. Prior bone island humeral head on the left has be en chronically present. Overlying soft tissues appear unremarkable. IMPRESSION: A relatively large lung volumes but no pneumonia seen, source of sepsis syndrome is not f ound. Dictated by: Kendrick Cesar M.D. on 03/29/2017 at 9:27 Approved by: Kendrick Cesar M.D. on 03/29/2017 at 9:28
--- NOTE | 2017-03-29 10:06 | DRSVH ---
PROCEDURE: CT ABDOMEN AND PELVIS WITH CONTRAST ([id number]) INDICATIONS: FEVER, LLQ TENDER, 20K WBC COUNT TECHNIQUE: After the administration of intravenous contrast, 5 mm thick sections acquired from the diaphragm to the symphysis. 5 mm coronal and sagittal reformats were acquired. For radiation dose reduction, the following was used: automated exposure control, adjustment of mA and/or kV according to patient barbi salvador. COMPARISON: [facility], CT, CT ABD PELVIS W CON, 02/27/2017, 17:40. FINDINGS: Image quality: Excellent. ABDOMEN: Lung bases: Lung bases are clear. Heart size is normal. Solid organs: Liver and spleen are normal in size and enhancement. Gallbladder is distended. Unchan ged appearance of mild intrahepatic biliary prominence. Pancreas enhances normally. Bilateral adrena l masses are unchanged, right and left. Kidneys demonstrate normal size and enhancement, without hyd ronephrosis. Peritoneum and bowel: Bowel loops are nonobstructed. However, there is significant stool throughout colon. Colonic diverticula are present without visualized inflammatory change. Nodes and vessels: No retroperitoneal or mesenteric adenopathy by size criteria. Aorta and inferior vena cava are normal in size. Miscellaneous: No ventral hernias. PELVIS: Genitourinary: Bladder wall thickness is normal. Miscellaneous: No inguinal hernias or adenopathy. Bones: No suspicious bony lesions. No vertebral body compression fractures. IMPRESSION: 1. Significant stool throughout the colon consistent with marked constipation. No obstruction. 2. Mild intrahepatic biliary dilation, unchanged. Dictated by: Randee Velez M.D. on 03/29/2017 at 9:45 Approved by: Randee Velez M.D. on 03/29/2017 at 10:04
--- NOTE | 2017-03-29 10:25 | NUR ---
NUTRITION ASSESSMENT: ASSESS: 71 YO male with recent diagnosis of C. difficile who completed treatment presents to [facility] ED with 16 hours of nausea, vomiting, abdominal pain and generalized malaise. CT abdomen showing large amount of retained fecal material. Patient states that he has been having regular bowel movements 2-3 times per day. Last bowel movement and emesis was just prior to presentation to the ED. Etiology possibly secondary to small bowel obstruction versus recurrent C. difficile infection versus other infectious etiology. The patient meets criteria for severe malnutrition, as evidenced by 3.5 kg wt. loss x 1 month = 7.19%, combined with obvious muscle and fat loss noted per limited nutrition focused physical exam. PMHx: Nephrolithiasis, macrocytic anemia, renal insufficiency, gastritis, HTN, dyslipidemia, retinal artery occlusion, second-degree AV block, COPD. DIET: Clear liquid x 1 D. LABS: Reviewed. Cr 1.43, Glu 109, Ca 8.1, Alb 3.3. MEDICATIONS: Reviewed. NUTRITION FOCUSED PHYSICAL ASSESSMENT: GI symptoms / stool: Flatus noted.Rafael: 18. Skin Integrity: No issues reported. ANTHROPOMETRICS: Current Wt: 45.2 kg BMI: 16.0 kg/m2. IBW: 61.82 kg (73% IBW). ESTIMATED NEEDS (SEVERE MALNUTRITION, UNDERWEIGHT, CKD): Calories: 1356 - 1582 kcal (30 - 35 kcal / kg BW) Protein: 45 - 54 g protein (1.0 - 1.2 g / kg BW) NUTRITION DIAGNOSIS: 1) Severe malnutrition related to ongoing C. difficile, as evidenced by 3.5 kg wt. loss x 1 month = 7.19%. INTERVENTION: 1) Will add Ensure Clear to trays while patient is on clear liquids, advance to Ensure / Magic Cups / Gelatein once diet advanced. MONITOR/EVALUATE: Clear liquid status, diet advance, PO intake, labs, weight, nutritional status. Follow up per high nutrition risk guidelines.
[2017-03-29] MEDS ORDERED: Lactulose 20 Gm/30 mL 30 mL Syrup PO ONE (10:45)
[2017-03-29] MEDS: Nystatin 100,000 Unit/mL 5 mL Suspension PO SCH ×2 (17:46→21:55)
[2017-03-30] MEDS: Heparin 5,000 Unit/mL Inj SUBQ SCH ×2 (00:09→08:15)
[2017-03-30 00:21] VITALS: BP 170/81; PULSE 46; RESP 18; O2SAT 95
[2017-03-30 04:53] VITALS: BP 171/85; PULSE 49; RESP 18; O2SAT 95
[2017-03-30 06:30] VITALS: PULSE 88
[2017-03-30] MEDS: HYDROcodone-APAP 5-325 mg Tablet PO PRN (06:36)
[2017-03-30 07:42] LABS: BASOPHILS % (AUTO) 0.1 % (0-3); EOSINOPHILS % (AUTO) 0.1 % (0-5); Mean Corpuscular Hemoglobin 33.8 pg (27.0-35.0); Mean Corpuscular Volume 101.2 fL (81-100); NEUTROPHILS % (AUTO) 86.5 % (40-74); Platelet Count 244 bil/L (150-400)
[2017-03-30 08:00] VITALS: PULSE 72
--- NOTE | 2017-03-30 08:12 | NUR ---
Case Management: JOSE given and explained to pt. Jaycee SPICER RN
--- NOTE | 2017-03-30 08:20 | PCM.DIMED ---
Discharge Instructions Date of Service Mar 30, 2017 Dates of Hospitalization Mar 29, 2017 at 01:56 Discharge Diagnosis Discharge Diagnosis # Abdominal pain with nausea and vomiting due to constipation, present on admission, resolved #Leukocytosis of unclear etiology, present on admission, active. #Recent C. difficile infection, present on admission, active. #Acute on chronic kidney injury, present on admission, active. - Etiology likely hypovolemia from nausea and vomiting. Chronic stable conditions COPD Hypertension Protein-calorie malnutrition Diet Discharge Diet: Low fat, Low Sodium Activity Discharge Activity: Limited until seen by PCP Call your provider Call your provider for: Fever or Chills, Shortness of breath, Bleeding, Chest pain, Vomitting, Excessive diarrhea, Weakness (unilateral) Patient Instructions Patient Instructions You were hospitalized due to nausea, vomiting and abdominal pain. Workup revealed constipation with large stool burden on CT scan. Had bowel movement and symptoms improved. Please take senna and Colace as needed for constipation. You have leukocytosis/increased white count of unclear etiology. Workup is negative for infection. c.dif negative .You will need to have repeat CBC in 1 week with PCP. Follow-up with PCP in 1 week. Follow-up Provider: César Monet MD Follow-up with PCP in: 1 week Shyam Aviles MD Mar 30, 2017 08:20
[2017-03-30] MEDS: Nystatin 100,000 Unit/mL 5 mL Suspension PO SCH (08:21)
[2017-03-30] MEDS ORDERED: SENN-133 PO (08:21)
[2017-03-30] MEDS ORDERED: POLY17PO6 PO (08:21)
[2017-03-30] MEDS: Tiotropium 18mcg/Cap 5 Capsule Inhaler Kit INHALATION SCH (08:22)
[2017-03-30 08:36] LABS: Magnesium 2.2 mg/dL (1.6-2.6)
--- NOTE | 2017-03-30 09:05 | NUR ---
discharge paperwork reviewed, no questions at this time. pt denies pain/CP/distress. IV's removed and telemetry discontinued. Property bagged and patient waiting for ride in private car to return to private home. pt refuses transport in W/C to car.
--- NOTE | 2017-03-30 10:23 | NUR ---
Social Work-discharge: Data:EMR Reviewed. Pt is on day 1 of hospitalization for abdominal pain per H&P. Pt is medically stable for discharge. Pt resides at home with family and has been up independent in his room. No discharge needs identified. All updated and agreeable to plan. Assessment:Pt who is independent at baseline. Plan:Pt to discharge home today via POV. No discharge needs identified. All updated and agreeable to plan. WARNER Bolanos
--- NOTE | 2017-03-30 15:36 | PCM.DC.MED ---
Discharge Summary Date of Service Mar 30, 2017 Dates of Hospitalization Date of Hospital Admission Mar 29, 2017 at 01:56 Date of Discharge: Mar 30, 2017 Providers: Admitting Physician: Chelsea Awad DO Primary Care Physician: César Monet MD Attending Physician: Shyam Bhatia MD Diagnosis at Time of Discharge Diagnosis at Time of Discharge # Abdominal pain with nausea and vomiting due to constipation, present on admission, resolved #Leukocytosis of unclear etiology, present on admission, active. #Recent C. difficile infection, present on admission, active. #Acute on chronic kidney injury, present on admission, active. - Etiology likely hypovolemia from nausea and vomiting. Chronic stable conditions COPD Hypertension Protein-calorie malnutrition Procedures XRay, CTs & MRIs X-Ray Chest Interpretation Chest Xray Interpretation: Negative View: Portable, 1 view Interpretation / Wet Read by: Wet read ED physician CT Abd / Pelvis Interpretation CONCLUSION: Large amount of retained fecal material throughout the colon. Mild biliary dilatation may be chronic. Correlate with laboratory values. Moderate right renal cortical atrophy and left renal cortical scarring. Transmitted to the ED at 00:11 by Jovani Lamar M.D. Interpretation / Wet Read by: Interpret - Radiologist Brief History per HPI Shy Hewitt is a 71-year-old man with past medical history significant for iron deficiency anemia, COPD, hypertension, and recent diagnosis of C. difficile who completed treatment with oral vancomycin 2 weeks ago who presents to [facility] with 16 hours of nausea, vomiting, abdominal pain and generalized malaise. He states that following his recent hospitalization January and completion of his antibiotics he has felt much improved. He denies any ongoing diarrhea. He states that he has been having 2-3 formed bowel movements per day. Last bowel movement was just prior to presentation. He has had 3 to 4 episodes of emesis last episode was also just prior to presentation. He has not had anything besides ice chips and water for the past 24 hours. He has some associated subjective fever, chills and nonproductive cough. He denies any dysuria, hematuria, chest pain, shortness of breath, lightheadedness, headache, lower extremity edema, or hematemesis. On presentation to the ED patient's temperature was 37.2, pulse was 109, respiratory rate 18 satting 96% on room air, blood pressure 131/91. Initial labs revealed white blood cell count of 20.1 with 89.8% neutrophil predominance. Hemoglobin and hematocrit stable with the elevated MCV at 100.3. Patient's BUN and creatinine were slightly elevated at 29 and 1.44. Procalcitonin 0.57 with a negative lactic acid 0.2. CT of the abdomen showed large amount of retained fecal material throughout the colon along with mild biliary dilatation chronicity unknown. Blood cultures were sent and patient was given 1 L NS along with Zosyn in the ED. At the time of my examination the patient states that he is feeling 70% better than when he arrived at the ED. Hospital Course Shy Hewitt is a 71-year-old man with past medical history significant for COPD, hypertension, and recent diagnosis of C. difficile who completed treatment with oral vancomycin 2 weeks ago who presents to [facility] with 16 hours of nausea, vomiting, abdominal pain and generalized malaise. # Abdominal pain with nausea and vomiting due to constipation , present on admission, active.resolved - CT abdomen showed showed large amount of retained fecal material.gave a dose of lactulose,had 3 BMs and symptoms improved . - C. difficile negative # Leukocytosis of unclear etiology, present on admission, active. - C. difficile negative - On admit WBC 20.1 with a neutrophil predominance.18.1 today - 1 dose of Zosyn given in the ED. - Blood cultures negative - C. difficile PCR negative -advised to follow up with PCP in 1 week for repeat CBC # Recent C. difficile infection, present on admission, active. - Patient completed treatment with oral vancomycin approximately 2 weeks ago. # Acute on chronic kidney injury, present on admission, active. - Etiology likely hypovolemia from nausea and vomiting. - On admission creatinine 1.44. Baseline creatinine is 1.1-1.2. -today 1.32 Chronic stable conditions COPD - Continue home medication: Spiriva daily. Hypertension - Hypertensive medications recently discontinued. Protein-calorie malnutrition - On admit: BMI 16.6 - Patient states that since admission for C. difficile he has regained 3-5 pounds. discharged home condition stable and improved Exam Vital Signs (Last) Date Time Temp Pulse Resp B/P Pulse Ox O2 Delivery O2 Flow Rate FiO2 03/30/17 08:00 72 03/30/17 04:53 37.2 18 171/85 95 Room Air Exam General: Thin elderly gentleman in no acute distress. HEENT: Normocephalic, atraumatic. External ears without defect. Pupils equal, round, and reactive to light and accommodation. Anicteric sclerae, moist conjunctivae, and no lid lag. Neck: Supple with full range of motion. No jugular venous distension. Cardiovascular: Regular rate and rhythm without appreciable murmurs. Pulmonary: Clear to auscultation bilaterally with no crackles, wheezes, or rhonchi. Normal respiratory effort with no use of accessory muscles. Abdomen: Bowel tones present. Soft, minimally tender to palpation greatest in the left lower quadrant, scaphoid. Extremities: Clubbing present. No cyanosis, edema, or lymphadenopathy appreciated. Skin: Normal temperature, turgor, and texture; no rash, ulcers, or subcutaneous nodules appreciated. Neurological: Cranial nerves grossly intact. Normal muscle strength, tone, and bulk. Reflexes, coordination, and sensory function within normal limits. No known gait impairment. Psychiatric: Normal mood and affect. Alert and oriented to person, place, and time. Test 03/28/17 21:54 03/28/17 22:13 03/28/17 23:15 03/30/17 07:25 Hold Urine Received (Received) Lactic Acid Level 0.2mmol/L (0.4-2.0) Lipase 9U/L (13-60) Hold Little Top Tube Received (Received) Urine Color Yellow (YELLOW) Urine Appearance Clear (CLEAR,HAZY) Urine pH 30 (5.0-8.0) Urine Specific [place] 1.020 (1.003-1.035) Urine Protein 30mg/dL (NEG,TRACE) Urine Glucose (UA) Negativemg/dL (NEGATIVE) Urine Ketones Negativemg/dL (NEGATIVE) Urine Occult Blood Moderate (NEGATIVE) Urine Nitrite Negative (NEGATIVE) Urine Bilirubin Negative (NEGATIVE) Urine Urobilinogen Normalmg/dL (NORMAL) Urine Leukocyte Esterase Negative (NEGATIVE) Urine RBC 3-10/hpf (0-2) Urine WBC 0-5/hpf (0-5) Urine Epithelial Cells Occasional/hpf (NONE-MOD) Urine Crystals None seen (NONE SEEN) Urine Bacteria Few/hpf (NONE-FEW) Urine Hyaline Casts None/lpf (NONE) Urine Granular Casts Occasional (NONE SEEN) Urine Waxy Casts None seen (NONE SEEN) Urine Red Blood Cell Casts None seen (NONE SEEN) Urine White Blood Cell Casts None seen (NONE SEEN) Urine Mucus None seen (None Seen) Urine Trichomonas None seen (NONE SEEN) Urine Yeast None (NONE SEEN) Urinalysis Comment None White Blood Count 18.1th/mm3 (3.8-10.1) Red Blood Count 3.28mil/mm3 (4.40-5.80) Hemoglobin 11.1g/dL (13.8-17.2) Hematocrit 33.2% (41.0-50.0) Mean Corpuscular Volume 101.2fL (81-100) Mean Corpuscular Hemoglobin 33.8pg (27.0-35.0) Mean Corpuscular Hemoglobin Concent 33.4% (32.0-37.0) Red Cell Distribution Width 13.3% (12.3-15.4) Platelet Count 244bil/L (150-400) Neutrophils (%) (Auto) 86.5% (40-74) Lymphocytes (%) (Auto) 7.0% (14-46) Monocytes (%) (Auto) 6.0% (4-12) Eosinophils (%) (Auto) 0.1% (0-5) Basophils (%) (Auto) 0.1% (0-3) Sodium Level 137mEq/L (134-144) Potassium Level 4.0mEq/L (3.5-5.2) Chloride Level 101mEq/L (97-108) Carbon Dioxide Level 23mmol/L (18-29) Blood Urea Nitrogen 23mg/dL (8-27) Creatinine 1.32mg/dL (0.76-1.27) Estimat Glomerular Filtration Rate 57mL/min (>59) Glucose Level 135mg/dL (60-99) Calcium Level 8.3mg/dL (8.5-10.1) Magnesium Level 2.2mg/dL (1.6-2.6) Total Bilirubin 0.3mg/dL (0.0-1.2) Aspartate Amino Transf (AST/SGOT) 12U/L (0-50) Alanine Aminotransferase (ALT/SGPT) 8U/L (0-44) Alkaline Phosphatase 67U/L (25-160) Total Protein 5.5g/dL (6.4-8.4) Albumin 3.2g/dL (3.4-5.0) Procalcitonin 0.41ng/mL (0.00-0.08) Microbiology Results stool negative for c.dif Discharge Medications Discharge Medications Aspirin Chew (Aspirin Chew) 81 Mg Chew 81 MG PO DAILY (Reported) Pravastatin (Pravastatin) 20 Mg Tablet 10 MG PO DAILY (Reported) Tiotropium Hel[place] (Spiriva) 18 Mcg Cap.w.dev 18 MCG IH DAILY (Reported) As needed Hydrocodone-Acetaminophen 5-325 mg (Hydrocodone-Acetaminophen 5-325 mg) 1 Each Tablet 1 EACH PO QID PRN PRN For Pain (Reported) Polyethylene Glycol 3350 (Miralax) 17 Gm Powd.pack 17 GM PO DAILY PRN PRN For Constipation (Reported) Polyethylene Glycol 3350 (Miralax) 17 Gm Powd.pack 17 GM PO DAILY PRN PRN For Constipation Prescribed by: SHYAM BHATIA MD Sennosides (Senna) 8.6 Mg Tablet 17.2 MG PO BID PRN PRN For Constipation Prescribed by: SHYAM BHATIA MD Followup Plan Disposition: home Discharge Diet: Low fat, Low Sodium Discharge Activity: Limited until seen by PCP Patient Instructions You were hospitalized due to nausea, vomiting and abdominal pain. Workup revealed constipation with large stool burden on CT scan. Had bowel movement and symptoms improved. Please take senna and Colace as needed for constipation. You have leukocytosis/increased white count of unclear etiology. Workup is negative for infection. c.dif negative .You will need to have repeat CBC in 1 week with PCP. Follow-up with PCP in 1 week. Follow-up Provider: César Monet MD Follow-up with PCP in: 1 week copies to: César Monet MD, Melaku MD Mar 30, 2017 15:36
== END 2017-03-30 09:17 | disposition home or self-care (01) | DRG 392 ==
LOC: SED 21:03 → OBSVTOIN 03-29 01:56 → MPC 03-29 01:56
PROVIDERS: ADMIT Internal Medicine; ATTEND Internal Medicine
DX: K59.00 Constipation, unspecified (principal); N17.9 Acute kidney failure, unspecified; E46 Unspecified protein-calorie malnutrition; Z68.1 Body mass index [BMI] 19.9 or less, adult; F17.210 Nicotine dependence, cigarettes, uncomplicated; N18.9 Chronic kidney disease, unspecified; Z79.82 Long term (current) use of aspirin; J44.9 Chronic obstructive pulmonary disease, unspecified; Z66 Do not resuscitate; Z98.61 Coronary angioplasty status; E86.1 Hypovolemia; D72.829 Elevated white blood cell count, unspecified; R11.2 Nausea with vomiting, unspecified